=== PATIENT | male | born 1980 | race Caucasian/White ===

== ENCOUNTER 2020-11-21 17:43 | Inpatient (IN) | payer OTHER, MEDICAID, SELFPAY ==
[2020-11-21 17:44] VITALS: BP 106/76; PULSE 105; RESP 14; TEMP 36.2; O2SAT 98; BMI 20.2
[2020-11-21 19:08] VITALS: BMI 20.3
--- NOTE | 2020-11-21 19:13 | ED.DCSUM_ITS ---
History of Present Illness Chief Complaint: Substance Abuse Detail of Chief Complaint: Substance abuse Informant: Patient Onset: Month(s) - Years. Patient states he has been drinking since he was a teenager. Context: Gradual Onset Timing: Continuous Quality: Consumes 30 beers a day also uses heroin and crack cocaine Location: Not applicable Current Severity: Mild Maximum Severity: Moderate Worsened by: Abstinence Relieved by: Use Associated Symptoms: Jitteriness, anxiety, palpitations Narrative: Patient is a 39-year-old male who presents to the emergency department because of dependency on alcohol, opiates and crack cocaine. He consumes 30 beers a day. He has been snorting what he believes to be heroin and crack cocaine together. He denies IV drug use presently. He denies history of hepatitis or HIV. He denies abdominal pain. Does complain of nausea. Denies diarrhea. He denies paresthesia, anesthesia or motor weakness. He denies history of liver disease. Prior similar symptoms: No Recent Illness/Hospitalization: No - Past Medical History (1) Substance abuse Status: Acute Past Medical History - Allergies and Home Meds Allergies/Adverse Reactions: Allergies shellfish derived Allergy (Verified 11/21/20 17:48) Anaphylaxis Primary Care Physician: Care Physician,No Primary [Primary Care Provider] - Prior records reviewed: No Surgical History: no surgical history Lives: Spouse/ Significant Other Smoking Status: Current every day smoker Alcohol: Heavy Drugs: Cocaine, Heroin Review of Systems General: Reports: Malaise. Denies: Chills, Fever, Sweats Eyes: Denies: Visual changes - bilaterally, Blurred Vision - bilaterally Cardiovascular: Reports: Palpitations. Denies: Chest pain Respiratory: Denies: Dyspnea, Cough, Dyspnea on exertion Gastrointestinal: Reports: Nausea. Denies: Abdominal pain, Vomiting, Diarrhea, Constipation, Melena, Hematochezia, -, - Genitourinary: Denies: Dysuria, Hematuria, Frequency Musculoskeletal: Denies: Myalgias, Arthralgias, Neck pain, Back pain, Swelling, Extremity Pain, -, - Skin: Denies: Rash, Wounds Neurological: Denies: Headache, Weakness, Parasthesia, Numbness, -, - Psych: Reports: Anxiety. Denies: Depression Endocrine: Denies: Polyuria, Polydipsia Hematologic: Denies: Easy bruising, Easy bleeding Physical Exam Vital Signs/Narrative: Vital Signs Temp Pulse Resp BP Pulse Ox 11/21/20 17:44 97.1 F L 105 H 14 106/76 98 Inital Vital Signs reviewed: Yes General: Well nourished, Well developed, No Acute Distress Head: Normocephalic, Atraumatic Eyes: Perrl, EOMI. Negative for: Pale conjunctiva, Scleral icterus ENT: Moist mucous membranes, No rhinorrhea Neck: Supple, Nontender, No lymphadenopathy, No JVD Cardiovascular: Regular rate, Regular rhythm, No murmurs Respiratory: No distress, CTA bilaterally, Chest nontender Abdomen: Soft, Nontender, Nondistended, Normal bowel sounds Rectal: Deferred Back: Nontender, Normal Inspection Extremities: Nontender, No edema Skin: Normal color, No rash, No Trauma. Negative for: Cyanosis, Diaphoresis, Jaundice Neurological: Alert, Oriented x3, Cranial nerves II-XII grossly intact, Normal Strength, Normal Sensation, Normal DTR - Reflexes are brisk. He has no clonus or Babinski sign. Psychological: Normal Mood Diagnostic/Tx/Re-eval Chest X-Ray - ED: 2 View, Read by ED Physician, Normal, - - Operative by me at 2024. Documented under diagnostic testing. 11/21/20 20:05 Tibia & Fibula 2 Views [RAD] Stat Laboratory Results 11/21/20 11/21/20 11/21/20 19:00 19:00 19:00 WBC 11.5 H RBC 4.92 Hgb 14.4 Hct 44.0 MCV 89.4 MCH 29.3 MCHC 32.7 RDW Std Deviation 43.2 RDW Coeff of Thalia 13.2 Plt Count 203 MPV 12.5 H Immature Gran % (Auto) 0.300 Neut % (Auto) 73.6 H Lymph % (Auto) 15.2 L [place] % (Auto) 9.3 Eos % (Auto) 1.3 Baso % (Auto) 0.3 Absolute Neuts (auto) 8.4 H Absolute Lymphs (auto) 1.75 Nucleated RBC % 0 Differential Comment SCANNED Sodium 139 Potassium 3.7 Chloride 102 Carbon Dioxide 33.0 H Anion Gap 4 L BUN 21 H Creatinine 0.86 Estim Creat Clear Calc 109.79 Est GFR (MDRD) Af Amer 128 Est GFR (MDRD) Non-Af 106 BUN/Creatinine Ratio 24.5 H Glucose 62 L Calcium 8.5 Total Bilirubin 0.20 AST 16 ALT 33 Alkaline Phosphatase 118 H Total Protein 6.7 Albumin 3.2 Globulin 3.5 Albumin/Globulin Ratio 0.9 Urine Opiates Screen Urine Methadone Screen Ur Barbiturates Screen Ur Phencyclidine Scrn Ur Amphetamines Screen U Methamphetamin-MDMA U Benzodiazepines Scrn Urine Cocaine Screen U Cannabinoids Screen Ur Drug Screen Comment Ethyl Alcohol < 3.0 11/21/20 19:00 WBC RBC Hgb Hct MCV MCH MCHC RDW Std Deviation RDW Coeff of Thalia Plt Count MPV Immature Gran % (Auto) Neut % (Auto) Lymph % (Auto) [place] % (Auto) Eos % (Auto) Baso % (Auto) Absolute Neuts (auto) Absolute Lymphs (auto) Nucleated RBC % Differential Comment Sodium Potassium Chloride Carbon Dioxide Anion Gap BUN Creatinine Estim Creat Clear Calc Est GFR (MDRD) Af Amer Est GFR (MDRD) Non-Af BUN/Creatinine Ratio Glucose Calcium Total Bilirubin AST ALT Alkaline Phosphatase Total Protein Albumin Globulin Albumin/Globulin Ratio Urine Opiates Screen NEGATIVE Urine Methadone Screen NEGATIVE Ur Barbiturates Screen NEGATIVE Ur Phencyclidine Scrn NEGATIVE Ur Amphetamines Screen NEGATIVE U Methamphetamin-MDMA NEGATIVE U Benzodiazepines Scrn NEGATIVE Urine Cocaine Screen POSITIVE H U Cannabinoids Screen NEGATIVE Ur Drug Screen Comment Ethyl Alcohol Count is slightly elevated. Lactate is pending. Liver enzymes are normal. Tox is positive for cocaine. Suspect negative opiate would indicate patient is snorting fentanyl. 2 view x-ray of the left tib-fib reveals no foreign body or subcutaneous air. There is no abnormality of the osseous structures. Lactate is normal. - Medical Decision Making She presents for detox to alcohol, opiates and crack cocaine. Screening labs were obtained. Since he tachycardic and has mild symptoms withdrawal he was treated with Ativan, phenobarbital, Zofran and Bentyl. ED Disposition - Plan for ED Patient: Disposition: Acute Care Hospital [facility] Diagnosis: Alcohol withdrawal, Cellulitis of left leg without foot, Opiate dependence, Crack cocaine use Referrals: Care Physician,No Primary [Primary Care Provider] -
[2020-11-21 19:15] VITALS: BP 116/83; PULSE 95; RESP 16; TEMP 36.7; O2SAT 99
[2020-11-21 19:15] LABS: Absolute Lymphocyte Count 1.75 X10^3/uL (0.83-4.51); Absolute Neutrophil Count 8.4 X10^3/uL (2.0-7.7); Basophil# 0.04 X10^3/uL; Basophil% 0.3 % (0-1); Eosinophil# 0.15 X10^3/uL; Eosinophils% 1.3 % (0-5); Hemoglobin 14.4 g/dL (13.0-16.5); Lymphocyte # 1.75 X10^3/ul (4.0); Lymphocyte % 15.2 % (19-41); Mean Corp Hgb Conc 32.7 g/dL (32-36); Mean Corpuscular Hgb 29.3 pg (27.0-32.0); Mean Corpuscular Volume 89.4 fL (80-94); Mean Platelet Vol. 12.5 fl (6.2-12.0); Monocyte# 1.07 X10^3/uL; Monocyte% 9.3 % (0-10); NRBC Flagged by Analyzer 0 % (0-5); Neutrophil # 8.44 X10^3/uL (2.7-7.7); Neutrophil % 73.6 % (47-70); POSITIVE MORPHOLOGY YES; Platelet Count 203 K/mm3 (150-450); RBC Distribution Width CV 13.2 % (11.6-14.6); RBC Distribution Width SD 43.2 fl (35.1-43.9); Red Blood Count 4.92 M/mm3 (4.6-6.2); White Blood Count 11.5 K/mm3 (4.4-11.0)
[2020-11-21] MEDS: Phenobarbital 32.4 MG Tablet 97.2 MG PO (19:20)
[2020-11-21] MEDS: Dicyclomine 10 MG Capsule 20 MG PO (19:21)
[2020-11-21] MEDS: LORazepam 2 MG/ML Syringe 1 MG IV (19:21)
[2020-11-21] MEDS: Ondansetron 4 MG/2 ML Vial IV (19:22)
[2020-11-21 19:26] VITALS: BP 119/83; PULSE 93; RESP 17; O2SAT 99
[2020-11-21 19:34] LABS: ALB/GLOB Ratio 0.9 RATIO (0.9-2.4); AST(SGOT) 16 U/L (15-37); Alanine Aminotransfer ALT/SGPT 33 U/L (16-61); Albumin, Serum 3.2 g/dL (3.2-5.0); Alkaline Phosphatase 118 U/L (45-117); Anion Gap 4 (5-15); BUN 21 mg/dL (7-18); BUN/Creat Ratio 24.5 RATIO (10-20); Calcium,Total 8.5 mg/dL (8.5-10.1); Chloride 102 mmol/L (98-107); Creatinine, Serum 0.86 mg/dL (0.70-1.30); EST Glomerular Filtration Rate 106 mL/min (>60); Est Glom Filt Rate - Afr Amer 128 mL/min (>60); Estimated Creatinine Clearance 109.79 ml/min; Globulin 3.5 g/dL (2.2-4.2); Glucose 62 mg/dL (74-106); Potassium 3.7 mmol/L (3.5-5.1); Protein, Total 6.7 g/dL (6.4-8.2); Sodium Level 139 mmol/L (136-145)
[2020-11-21 19:37] LABS: Alcohol, Blood (Medical)-Serum < 3.0 mg/dL
[2020-11-21 19:40] LABS: Amphetamine Urine VISTA NEGATIVE (<1000 ng/mL); Barbiturate Urine VISTA NEGATIVE (< 200 ng/mL); Benzodiazepine Urine VISTA NEGATIVE (< 200 ng/mL); Cocaine Urine VISTA POSITIVE (< 300 ng/mL); Ecstacy Urine VISTA NEGATIVE (< 500 ng/mL); Methadone Urine VISTA NEGATIVE (< 300 ng/mL); PCP Urine VISTA NEGATIVE (< 25 ng/mL); THC Urine VISTA NEGATIVE (< 50 ng/mL); Vista UDS pH Range 6
[2020-11-21 19:46] LABS: Differential Comment SCANNED; Differential Indicated SCAN CRITERIA MET
--- NOTE | 2020-11-21 20:05 | RAD_ITS ---
INDICATION: Swelling, pain evaluate subcu air EXAMINATION/TECHNIQUE: X-RAY - LEFT XR Tibia/Fibula 2 Views COMPARISON: None. FINDINGS: No acute fracture or malalignment. Sclerotic expansile lesion in the distal fibular shaft measuring approximately 5.3 x 1.7 cm. No degenerative changes are seen. The soft tissues are unremarkable. RAD/Tibia & Fibula 2 Views IMPRESSION: Sclerotic expansile lesion in the mid to distal fibula is indeterminate. Recommend MRI tib-fib with and without contrast for further evaluation. Electronically Signed: Sammy Danielle MD at 20:54 EDT Tel , Service support ,
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
[2020-11-21 20:28] LABS: Lactic Acid 1.2 mmol/L (0.4-1.9)
--- NOTE | 2020-11-21 20:59 | CM.ED ---
SOCIAL WORK Reason for Consult: Substance Abuse- requesting detox Patient presents to ER for detox from alcohol and heroin. Patient reports last use was last night. Informed by Dr. Nath patient with 5 children at home. This worker followed up with patient's [id number], Mayda Moe. Per Mayda, children are being cared for by family. Mayda valadez patient and do not have custody of older children. does have custody of 1 year-old and [facility] are aware of patient and 's substance use. Mayda valadez has been in contact with sample case porter. Call to [facility] Treatment Navigator, Kyle. Updated on patient's admission to [facility]. Per Shannon Wright will be in tomorrow to complete assessment. Plan: Admit to [facility] Dg Kim, MANAGER OF PROCUREMENT, MILLINERY DEPARTMENT MANAGER
[2020-11-21 21:11] VITALS: BP 114/72; PULSE 81; PULSE 83; RESP 12; TEMP 36.8; O2SAT 100; O2SAT 99
[2020-11-21 21:39] VITALS: BP 114/80; PULSE 75; RESP 16; TEMP 36.9; O2SAT 100; BMI 20.3
[2020-11-21 22:14] VITALS: BMI 19.3
[2020-11-21 22:23] LABS: Phosphorus 3.1 mg/dL (2.5-4.9)
[2020-11-21 22:54] LABS: HIV - WCH Non-Reactive (Nonreactive)
[2020-11-21 23:06] LABS: M R Staph aureus DNA By PCR POSITIVE (Negative); Probe Check PASS; Staph aureus DNA By PCR POSITIVE (Negative)
[2020-11-21] MEDS: Phenobarbital 32.4 MG Tablet 64.8 MG PO (23:40)
--- NOTE | 2020-11-22 00:03 | PCM.RX.CS ---
Consult Pharmacy has been consulted to manage selected antiobiotic: Vancomycin Type of Consult: New start Suspected Infection: Skin/Soft tissue Labs: Sodium 139 mmol/L (136-145) 11/21/20 19:00 Potassium 3.7 mmol/L (3.5-5.1) 11/21/20 19:00 Chloride 102 mmol/L (98-107) 11/21/20 19:00 Carbon Dioxide 33.0 mmol/L (21.0-32.0) H 11/21/20 19:00 Anion Gap 4 (5-15) L 11/21/20 19:00 BUN 21 mg/dL (7-18) H 11/21/20 19:00 Creatinine 0.86 mg/dL (0.70-1.30) 11/21/20 19:00 Est GFR (MDRD) Af Amer 128 mL/min (>60) 11/21/20 19:00 Est GFR (MDRD) Non-Af 106 mL/min (>60) 11/21/20 19:00 BUN/Creatinine Ratio 24.5 RATIO (10-20) H 11/21/20 19:00 Glucose 62 mg/dL (74-106) L 11/21/20 19:00 Weight used for dosin.1 kg Estimated Creatinine Clearance: 109 Goal Trough: 10-15 mcg/mL Pharmacy Plan for Drug Dosing: Pharmacy Service will continue to monitor and adjust dosing as required. Medications Vancomycin HCl (Vancomycin) 1,000 mg in 200 mls @ 200 mls/hr IV Q12H MADI Discontinued Medications Vancomycin HCl 1,750 mg/ (Sodium Chloride) 535 mls @ 250 mls/hr IV X1 ONE Stop: 11/21/20 22:08 Last Admin: 11/22/20 00:00 Dose: Infused Documented by: Follow-Up Labs: Trough Vancomycin Labs to be done on [date and time ordered]: 11/23 @ 0900
[2020-11-22] MEDS: Lactated Ringers 1,000 ML 125 ML IV (01:11)
[2020-11-22] MEDS: Buprenorphine HCl 2 MG TAB.SUBL SL ×3 (01:45→18:18)
[2020-11-22 03:40] VITALS: BP 110/62; PULSE 84; RESP 16; TEMP 36.8; O2SAT 98
[2020-11-22] MEDS: Phenobarbital 32.4 MG Tablet 64.8 MG PO ×6 (03:40→22:22)
[2020-11-22 05:29] LABS: AST(SGOT) 13 U/L (15-37); Alanine Aminotransfer ALT/SGPT 28 U/L (16-61); Albumin, Serum 2.7 g/dL (3.2-5.0); Alkaline Phosphatase 87 U/L (45-117); Anion Gap 5 (5-15); BUN 11 mg/dL (7-18); BUN/Creat Ratio 18.3 RATIO (10-20); Calcium,Total 7.9 mg/dL (8.5-10.1); Chloride 106 mmol/L (98-107); EST Glomerular Filtration Rate 160 mL/min (>60); Est Glom Filt Rate - Afr Amer 194 mL/min (>60); Estimated Creatinine Clearance 150.45 ml/min; Globulin 2.6 g/dL (2.2-4.2); Glucose 99 mg/dL (74-106); Potassium 3.7 mmol/L (3.5-5.1); Protein, Total 5.3 g/dL (6.4-8.2); Sodium Level 140 mmol/L (136-145)
[2020-11-22 06:58] VITALS: BP 103/66; PULSE 73; RESP 16; TEMP 36.7; O2SAT 99
[2020-11-22 07:04] VITALS: O2SAT 99
[2020-11-22 08:14] LABS: Absolute Lymphocyte Count 1.59 X10^3/uL (0.83-4.51); Basophil# 0.05 X10^3/uL; Basophil% 0.7 % (0-1); Eosinophil# 0.19 X10^3/uL; Eosinophils% 2.5 % (0-5); Hematocrit 39.7 % (40-54); Lymphocyte # 1.59 X10^3/ul (4.0); Lymphocyte % 20.9 % (19-41); Mean Corp Hgb Conc 32.7 g/dL (32-36); Mean Corpuscular Hgb 29.5 pg (27.0-32.0); Mean Corpuscular Volume 90.2 fL (80-94); Mean Platelet Vol. 12.8 fl (6.2-12.0); Monocyte# 0.72 X10^3/uL; Monocyte% 9.5 % (0-10); NRBC Flagged by Analyzer 0 % (0-5); Neutrophil # 5.03 X10^3/uL (2.7-7.7); Platelet Count 175 K/mm3 (150-450); RBC Distribution Width CV 13.2 % (11.6-14.6); RBC Distribution Width SD 43.4 fl (35.1-43.9); White Blood Count 7.6 K/mm3 (4.4-11.0)
[2020-11-22] MEDS: Thiamine Hydrochloride 100 MG Tablet PO (08:18)
[2020-11-22] MEDS: Folic Acid 1 MG Tablet PO (08:18)
[2020-11-22] MEDS: Vancomycin IV 1,000 MG/200 ML BAG 200 MG IV (09:15)
[2020-11-22 10:50] VITALS: BP 102/65; PULSE 84; RESP 16; TEMP 36.9; O2SAT 99
[2020-11-22] MEDS: Ibuprofen 600 MG Tablet PO ×2 (10:53→22:22)
--- NOTE | 2020-11-22 11:41 | CASEMGMT ---
MS 3 CESAR Juradoah Braden was working on contacting [facility] regarding patient and his 's child. Monica Mcdaniel DIRECTOR OF STRATEGIC MARKETING EDITH
--- NOTE | 2020-11-22 12:35 | PCM.HP.ID ---
Problem List (1) Left leg cellulitis Status: Acute Reason for Consult: skin abscess Consulted by: Dr. Foss History of Present Illness: The patient is a 39 year old M with etoh abuse, cocaine and opiate abuse. Denies ivdu, denies h/o hep C. Drinks 30 beers and half a bottle of liquor daily. Smokes crack and opiates. Came to ED for detox. Does not feel well. Reports 1-2 days of painful, red, lump inferior to L knee. No inciting event, no prior h/o MRSA or skin abscess. Some pain with knee movement. I&D done, cx sent, started on vanc/unasyn, feeling much better today. Full ROS performed and neg except as noted above. - Medical History Past Medical History (Chronic Problems): Chronic Problems Tobacco use (Chronic) Allergies/Adverse Reactions: Allergies shellfish derived Allergy (Verified 11/21/20 17:48) Anaphylaxis Home Medications: Ambulatory Orders Medication Instructions Recorded NK 11/21/20 - Social History Tobacco Use: cigarettes SMOKING STATUS:: Current every day smoker Drug Use: cocaine Vital Signs Temp Pulse Resp BP Pulse Ox 98.4 F 84 16 102/65 99 11/22/20 10:50 11/22/20 10:50 11/22/20 10:50 11/22/20 10:50 11/22/20 10:50 Oxygen Delivery Method Room Air Weight: 63.1 kg Body Mass Index (BMI) 19.3 Microbiology Past 72 Hours 11/21/20 21:10 Gram Stain - Final Fluid - Synovial (joint) Body Fluid Culture - Preliminary Staphylococcus aureus Laboratory Tests Past 24 Hrs 11/21/20 11/21/20 11/21/20 19:00 19:00 19:00 WBC 11.5 H RBC 4.92 Hgb 14.4 Hct 44.0 MCV 89.4 MCH 29.3 MCHC 32.7 RDW Std Deviation 43.2 RDW Coeff of Thalia 13.2 Plt Count 203 MPV 12.5 H Immature Gran % (Auto) 0.300 Neut % (Auto) 73.6 H Lymph % (Auto) 15.2 L [place] % (Auto) 9.3 Eos % (Auto) 1.3 Baso % (Auto) 0.3 Absolute Neuts (auto) 8.4 H Absolute Lymphs (auto) 1.75 Nucleated RBC % 0 Differential Comment SCANNED Sodium 139 Potassium 3.7 Chloride 102 Carbon Dioxide 33.0 H Anion Gap 4 L BUN 21 H Creatinine 0.86 Estim Creat Clear Calc 109.79 Est GFR (MDRD) Af Amer 128 Est GFR (MDRD) Non-Af 106 BUN/Creatinine Ratio 24.5 H Glucose 62 L Lactic Acid Calcium 8.5 Phosphorus Magnesium Total Bilirubin 0.20 AST 16 ALT 33 Alkaline Phosphatase 118 H Total Protein 6.7 Albumin 3.2 Globulin 3.5 Albumin/Globulin Ratio 0.9 Fluid Source Fluid Color Fluid Appearance Fluid WBC Fluid RBC Fluid Tot Cell Count Fld Polynuclear WBCs # Fld Polynuclear WBCs % Fluid Mononuclear WBCs Fld Mononuclear WBCs % Fluid Neutrophils Fluid Lymphocytes Fluid Monocytes Fluid Plasma Cells Fluid Macrophages Fld Mesothelial Cells Fluid Other Cells Fl Pathologist Comment Fluid Comment 2 Urine Opiates Screen Urine Methadone Screen Ur Barbiturates Screen Ur Phencyclidine Scrn Ur Amphetamines Screen U Methamphetamin-MDMA U Benzodiazepines Scrn Urine Cocaine Screen U Cannabinoids Screen Ur Drug Screen Comment Ethyl Alcohol < 3.0 Hepatitis A IgM Ab Hepatitis A Ab Total Hep Bs Antigen Hep B Core Total Ab Hep B Core IgM Ab HIV 1&2 Antibody S.aureus Protein A PCR MRSA (PCR) 11/21/20 11/21/20 11/21/20 19:00 19:00 19:00 WBC RBC Hgb Hct MCV MCH MCHC RDW Std Deviation RDW Coeff of Thalia Plt Count MPV Immature Gran % (Auto) Neut % (Auto) Lymph % (Auto) [place] % (Auto) Eos % (Auto) Baso % (Auto) Absolute Neuts (auto) Absolute Lymphs (auto) Nucleated RBC % Differential Comment Sodium Potassium Chloride Carbon Dioxide Anion Gap BUN Creatinine Estim Creat Clear Calc Est GFR (MDRD) Af Amer Est GFR (MDRD) Non-Af BUN/Creatinine Ratio Glucose Lactic Acid Calcium Phosphorus 3.1 Magnesium 2.0 Total Bilirubin AST ALT Alkaline Phosphatase Total Protein Albumin Globulin Albumin/Globulin Ratio Fluid Source Fluid Color Fluid Appearance Fluid WBC Fluid RBC Fluid Tot Cell Count Fld Polynuclear WBCs # Fld Polynuclear WBCs % Fluid Mononuclear WBCs Fld Mononuclear WBCs % Fluid Neutrophils Fluid Lymphocytes Fluid Monocytes Fluid Plasma Cells Fluid Macrophages Fld Mesothelial Cells Fluid Other Cells Fl Pathologist Comment Fluid Comment 2 Urine Opiates Screen NEGATIVE Urine Methadone Screen NEGATIVE Ur Barbiturates Screen NEGATIVE Ur Phencyclidine Scrn NEGATIVE Ur Amphetamines Screen NEGATIVE U Methamphetamin-MDMA NEGATIVE U Benzodiazepines Scrn NEGATIVE Urine Cocaine Screen POSITIVE H U Cannabinoids Screen NEGATIVE Ur Drug Screen Comment Ethyl Alcohol Hepatitis A IgM Ab Pending Hepatitis A Ab Total Pending Hep Bs Antigen Pending Hep B Core Total Ab Pending Hep B Core IgM Ab Pending HIV 1&2 Antibody S.aureus Protein A PCR MRSA (PCR) 11/21/20 11/21/20 11/21/20 19:00 19:52 21:10 WBC RBC Hgb Hct MCV MCH MCHC RDW Std Deviation RDW Coeff of Thalia Plt Count MPV Immature Gran % (Auto) Neut % (Auto) Lymph % (Auto) [place] % (Auto) Eos % (Auto) Baso % (Auto) Absolute Neuts (auto) Absolute Lymphs (auto) Nucleated RBC % Differential Comment Sodium Potassium Chloride Carbon Dioxide Anion Gap BUN Creatinine Estim Creat Clear Calc Est GFR (MDRD) Af Amer Est GFR (MDRD) Non-Af BUN/Creatinine Ratio Glucose Lactic Acid 1.2 Calcium Phosphorus Magnesium Total Bilirubin AST ALT Alkaline Phosphatase Total Protein Albumin Globulin Albumin/Globulin Ratio Fluid Source Cancelled Fluid Color Cancelled Fluid Appearance Cancelled Fluid WBC Cancelled Fluid RBC Cancelled Fluid Tot Cell Count Cancelled Fld Polynuclear WBCs # Cancelled Fld Polynuclear WBCs % Cancelled Fluid Mononuclear WBCs Cancelled Fld Mononuclear WBCs % Cancelled Fluid Neutrophils Cancelled Fluid Lymphocytes Cancelled Fluid Monocytes Cancelled Fluid Plasma Cells Cancelled Fluid Macrophages Cancelled Fld Mesothelial Cells Cancelled Fluid Other Cells Cancelled Fl Pathologist Comment Cancelled Fluid Comment 2 Cancelled Urine Opiates Screen Urine Methadone Screen Ur Barbiturates Screen Ur Phencyclidine Scrn Ur Amphetamines Screen U Methamphetamin-MDMA U Benzodiazepines Scrn Urine Cocaine Screen U Cannabinoids Screen Ur Drug Screen Comment Ethyl Alcohol Hepatitis A IgM Ab Hepatitis A Ab Total Hep Bs Antigen Hep B Core Total Ab Hep B Core IgM Ab HIV 1&2 Antibody Non-Reactive S.aureus Protein A PCR MRSA (PCR) 11/21/20 11/22/20 11/22/20 21:10 04:54 05:10 WBC 7.6 RBC 4.40 L Hgb 13.0 Hct 39.7 L MCV 90.2 MCH 29.5 MCHC 32.7 RDW Std Deviation 43.4 RDW Coeff of Tahlia 13.2 Plt Count 175 MPV 12.8 H Immature Gran % (Auto) 0.400 Neut % (Auto) 66.0 Lymph % (Auto) 20.9 [place] % (Auto) 9.5 Eos % (Auto) 2.5 Baso % (Auto) 0.7 Absolute Neuts (auto) 5.0 Absolute Lymphs (auto) 1.59 Nucleated RBC % 0 Differential Comment Sodium 140 Potassium 3.7 Chloride 106 Carbon Dioxide 29.0 Anion Gap 5 BUN 11 Creatinine 0.60 L Estim Creat Clear Calc 150.45 Est GFR (MDRD) Af Amer 194 Est GFR (MDRD) Non-Af 160 BUN/Creatinine Ratio 18.3 Glucose 99 Lactic Acid Calcium 7.9 L Phosphorus Magnesium Total Bilirubin 0.30 AST 13 L ALT 28 Alkaline Phosphatase 87 Total Protein 5.3 L Albumin 2.7 L Globulin 2.6 Albumin/Globulin Ratio 1.0 Fluid Source Fluid Color Fluid Appearance Fluid WBC Fluid RBC Fluid Tot Cell Count Fld Polynuclear WBCs # Fld Polynuclear WBCs % Fluid Mononuclear WBCs Fld Mononuclear WBCs % Fluid Neutrophils Fluid Lymphocytes Fluid Monocytes Fluid Plasma Cells Fluid Macrophages Fld Mesothelial Cells Fluid Other Cells Fl Pathologist Comment Fluid Comment 2 Urine Opiates Screen Urine Methadone Screen Ur Barbiturates Screen Ur Phencyclidine Scrn Ur Amphetamines Screen U Methamphetamin-MDMA U Benzodiazepines Scrn Urine Cocaine Screen U Cannabinoids Screen Ur Drug Screen Comment Ethyl Alcohol Hepatitis A IgM Ab Hepatitis A Ab Total Hep Bs Antigen Hep B Core Total Ab Hep B Core IgM Ab HIV 1&2 Antibody S.aureus Protein A PCR POSITIVE H MRSA (PCR) POSITIVE H - Other Studies Radiology: [] reviewed Other Studies: [] Route of nutrition/ use of supplements: [] Nutritional Intake: [] IV Site: [] Nix Catheter: [] - Physical Exam General: Alert, Oriented x3, Cooperative, No apparent distress HEENT: Atraumatic, PERRLA, EOMI Neck: Supple, No Nodes Lungs: Clear to auscultation, Normal air movement Cardiovascular: Regular rate, Regular Rhythm Abdomen: Soft, Non Tender, Non-Distended Extremities: No edema Skin: No rashes, - - Good knee movement, minimal swelling and redness L infrapatellar area IV Site: Peripheral, without redness Musculoskeletal: No Tenderness to Palpation of Joints or Extremities Neurological: Cranial nerves II-XII grossly intact - Assessment/Plan Antibiotics: [] Assessment/Plan: [] Active and Suspected Problems Substance abuse (Acute) Alcohol withdrawal (Acute) Cellulitis of left leg without foot (Acute) Opiate dependence (Acute) Crack cocaine use (Acute) Opiate withdrawal (Acute) Left leg cellulitis (Acute) staph aureus skin abscess below L knee - aspiration done in ED, cx with staph aureus. Low suspicion for septic arthritis based on exam and rapid improvement. Will narrow abx to po bactrim, plan on 5-7 day course. drug abuse - hiv neg, hep panel pending. Will follow, thank you, d/w Dr. Foss
--- NOTE | 2020-11-22 12:41 | PCM.PROGNOTE ---
Patient Problems: Active and Suspected Problems Substance abuse (Acute) Alcohol withdrawal (Acute) Cellulitis of left leg without foot (Acute) Opiate dependence (Acute) Crack cocaine use (Acute) Opiate withdrawal (Acute) Left leg cellulitis (Acute) Subjective: Patient was seen and examined today, he does not complain of any nervousness or tremor at this time, he is slightly diaphoretic. The area distal to the left knee is appears to be reddened and tender on palpation, I could see no evidence of discharge from the area. I had infectious diseases see the patient today and may narrowed his antibiotic coverage to Bactrim, they felt that he had a small staph abscess. - Physical Exam Vitals/I&O's: Vital Signs Temp Pulse Resp BP Pulse Ox 98.4 F 84 16 102/65 99 11/22/20 10:50 11/22/20 10:50 11/22/20 10:50 11/22/20 10:50 11/22/20 10:50 Oxygen Delivery Method Room Air Weight: 63.1 kg Body Mass Index (BMI) 19.3 Intake and Output for Last 24 Hours 11/20/20 11/21/20 11/22/20 23:59 23:59 23:59 Intake Total 112 / 887 3311.00 / 3311.00 Balance 112 / 887 3311.00 / 3311.00 General: Alert, Oriented x3, Cooperative, No apparent distress, Well developed HEENT: Atraumatic, PERRLA, EOMI, Normocephalic Oral: Moist Mucosa Neck: Supple, No JVD, No Nuchal Rigidity, Trachea Midline, Thyroid Normal Size and Texture Lungs: Clear to auscultation, Normal air movement, No rhonchi, No wheeze, No rales Cardiovascular: Regular rate, Regular Rhythm, Normal S1, Normal S2, No murmurs, PMI Normal, No rub noted Abdomen: Bowel Sounds Present, Soft, Non Tender, Non-Distended Extremities: No clubbing, No cyanosis, Capillary Refill Less than 3 Seconds, Edema - There is some mild edema and redness distal to the left knee, this area is tender to palpation Skin: - - There is some redness distal to the left knee, this area is also tender to palpation. Some edema is noted to be present Musculoskeletal: No Tenderness to Palpation of Joints or Extremities Neurological: Cranial nerves II-XII grossly intact, Neuro grossly intact, Muscle tone normal, Sensory exam intact to light touch and pain Psych/Mental Status: Normal Affect, Appropriate, Alert and oriented to time, place, person, mood and affect Microbiology Past 72 Hours 11/21/20 21:10 Fluid - Synovial (joint) Gram Stain - Final 11/21/20 21:10 Fluid - Synovial (joint) Body Fluid Culture - Preliminary Staphylococcus aureus Laboratory Results 11/21/20 19:00: WBC 11.5 H, RBC 4.92, Hgb 14.4, Hct 44.0, MCV 89.4, MCH 29.3, MCHC 32.7, RDW Std Deviation 43.2, RDW Coeff of Thalia 13.2, Plt Count 203, MPV 12.5 H, Immature Gran % (Auto) 0.300, Neut % (Auto) 73.6 H, Lymph % (Auto) 15.2 L, [place] % (Auto) 9.3, Eos % (Auto) 1.3, Baso % (Auto) 0.3, Absolute Neuts (auto) 8.4 H, Absolute Lymphs (auto) 1.75, Nucleated RBC % 0, Differential Comment SCANNED 11/21/20 19:00: Sodium 139, Potassium 3.7, Chloride 102, Carbon Dioxide 33.0 H, Anion Gap 4 L, BUN 21 H, Creatinine 0.86, Estim Creat Clear Calc 109.79, Est GFR (MDRD) Af Amer 128, Est GFR (MDRD) Non-Af 106, BUN/Creatinine Ratio 24.5 H, Glucose 62 L, Calcium 8.5, Total Bilirubin 0.20, AST 16, ALT 33, Alkaline Phosphatase 118 H, Total Protein 6.7, Albumin 3.2, Globulin 3.5, Albumin/Globulin Ratio 0.9 11/21/20 19:00: Ethyl Alcohol < 3.0 11/21/20 19:00: Urine Opiates Screen NEGATIVE, Urine Methadone Screen NEGATIVE, Ur Barbiturates Screen NEGATIVE, Ur Phencyclidine Scrn NEGATIVE, Ur Amphetamines Screen NEGATIVE, U Methamphetamin-MDMA NEGATIVE, U Benzodiazepines Scrn NEGATIVE, Urine Cocaine Screen POSITIVE H, U Cannabinoids Screen NEGATIVE, Ur Drug Screen Comment 11/21/20 19:00: Phosphorus 3.1, Magnesium 2.0 11/21/20 19:00: Hepatitis A IgM Ab Pending, Hepatitis A Ab Total Pending, Hep Bs Antigen Pending, Hep B Core Total Ab Pending, Hep B Core IgM Ab Pending 11/21/20 19:00: HIV 1&2 Antibody Non-Reactive 11/21/20 19:52: Lactic Acid 1.2 11/21/20 21:10: Fluid Source Cancelled, Fluid Color Cancelled, Fluid Appearance Cancelled, Fluid WBC Cancelled, Fluid RBC Cancelled, Fluid Tot Cell Count Cancelled, Fld Polynuclear WBCs # Cancelled, Fld Polynuclear WBCs % Cancelled, Fluid Mononuclear WBCs Cancelled, Fld Mononuclear WBCs % Cancelled, Fluid Neutrophils Cancelled, Fluid Lymphocytes Cancelled, Fluid Monocytes Cancelled, Fluid Plasma Cells Cancelled, Fluid Macrophages Cancelled, Fld Mesothelial Cells Cancelled, Fluid Other Cells Cancelled, Fl Pathologist Comment Cancelled, Fluid Comment 2 Cancelled 11/21/20 21:10: S.aureus Protein A PCR POSITIVE H, MRSA (PCR) POSITIVE H 11/22/20 04:54: Sodium 140, Potassium 3.7, Chloride 106, Carbon Dioxide 29.0, Anion Gap 5, BUN 11, Creatinine 0.60 L, Estim Creat Clear Calc 150.45, Est GFR (MDRD) Af Amer 194, Est GFR (MDRD) Non-Af 160, BUN/Creatinine Ratio 18.3, Glucose 99, Calcium 7.9 L, Total Bilirubin 0.30, AST 13 L, ALT 28, Alkaline Phosphatase 87, Total Protein 5.3 L, Albumin 2.7 L, Globulin 2.6, Albumin/Globulin Ratio 1.0 11/22/20 05:10: WBC 7.6, RBC 4.40 L, Hgb 13.0, Hct 39.7 L, MCV 90.2, MCH 29.5, MCHC 32.7, RDW Std Deviation 43.4, RDW Coeff of Thalia 13.2, Plt Count 175, MPV 12.8 H, Immature Gran % (Auto) 0.400, Neut % (Auto) 66.0, Lymph % (Auto) 20.9, [place] % (Auto) 9.5, Eos % (Auto) 2.5, Baso % (Auto) 0.7, Absolute Neuts (auto) 5.0, Absolute Lymphs (auto) 1.59, Nucleated RBC % 0 Current Medications Acetaminophen (Acetaminophen 500 Mg Tablet) 500 mg PO Q4H PRN PRN PRN Reason: Temp > 100.4 F, pain 1-1010 Buprenorphine HCl (Buprenorphine Hcl 2 Mg Tab.Subl) 4 mg SL Q8H [facility]; Taper Stop: 11/25/20 01:29 Last Admin: 11/22/20 09:14 Dose: 4 mg Documented by: Clonidine (Clonidine Hcl 0.1 Mg Tablet) 0.1 mg PO Q8H PRN PRN PRN Reason: RESTLESSNESS Folic Acid (Folic Acid 1 Mg Tablet) 1 mg PO DAILY@0800 [facility] Last Admin: 11/22/20 08:18 Dose: 1 mg Documented by: Sodium Chloride () 250 mls @ 15 mls/hr IV .[id number] PRN PRN Reason: Saline Flush Sodium Chloride () 250 mls @ 15 mls/hr IV .[id number] PRN PRN Reason: Additional IVPB Infusion Ibuprofen (Ibuprofen 600 Mg Tablet) 600 mg PO Q8H PRN PRN PRN Reason: PAIN Last Admin: 11/22/20 10:53 Dose: 600 mg Documented by: Methocarbamol (Methocarbamol 750 Mg Tablet) 1,500 mg PO Q6H PRN PRN PRN Reason: MUSCLE SPASM Nicotine (Nicotine 21 Mg Patch) 21 mg TD DAILY [facility] Last Admin: 11/22/20 09:14 Dose: 21 mg Documented by: Ondansetron HCl (Ondansetron 8 Mg Tablet) 8 mg PO Q8H PRN PRN PRN Reason: NAUSEA Phenobarbital (Phenobarbital 32.4 Mg Tablet) 97.2 mg PO Q4H [facility]; Taper Stop: 11/26/20 06:59 Last Admin: 11/22/20 10:51 Dose: 97.2 mg Documented by: Sodium Chloride (0.9% Saline Lock 10 Ml Syringe) 10 - 40 ml IV UD PRN PRN Reason: SALINE FLUSH Thiamine HCl (Thiamine Hydrochloride 100 Mg Tablet) [facility] Last Admin: 11/22/20 08:18 Dose: 100 mg Documented by: Trazodone HCl (Trazodone 100 Mg Tablet) 100 mg PO QHS PRN PRN PRN Reason: INSOMNIA Trimethoprim/Sulfamethoxazole (Smz/Tmp Ds Tablet) [facility] Medical Necessity - Tobacco Use Smoking Status: Current every day smoker Tobacco Use: Cigarettes, Cigars Assessment/Plan All Active Problems Substance abuse (Acute) Alcohol withdrawal (Acute) Cellulitis of left leg without foot (Acute) Opiate dependence (Acute) Crack cocaine use (Acute) Opiate withdrawal (Acute) Left leg cellulitis (Acute) #1 acute ethanol withdrawal-patient will remain on phenobarbital and Ativan as needed, he will be seen by the addiction social respiratory services manager today. #2 acute opiate withdrawal-patient will remain on Subutex #3 left lower leg cellulitis/skin abscess-secondary to staph-ID is seeing the patient today and the patient is on Bactrim #4 chronic alcoholism #5 polysubstance abuse-cocaine, opiates-patient denies injecting opiates-it is documented that he snorts it Inpatient E&M: 53753 Subs Hosp L2
[2020-11-22 14:47] VITALS: BP 112/64; PULSE 90; RESP 18; TEMP 36.8; O2SAT 99
--- NOTE | 2020-11-22 14:48 | ADDICTION ---
This creative services writer met with PT to complete ASAM,MSE,AUDIT,DUDIT assessments and to plan for d/c. PT A+Ox4 and participated appropriately. All documentation completed, faxed to [facility] and placed in PT's chart. PT plans to f/u with [facility] for IOP post d/c from [facility].
[2020-11-22] MEDS: Smz/Tmp Ds Tablet 1 TABLET PO ×2 (14:50→22:22)
[2020-11-22] MEDS: cloNIDine HCl 0.1 MG Tablet PO (15:05)
[2020-11-22] MEDS: Acetaminophen 500 MG Tablet PO (15:05)
[2020-11-22 22:17] VITALS: BP 101/55; PULSE 93; RESP 18; TEMP 36.6; O2SAT 99
[2020-11-22] MEDS: Methocarbamol 750 MG Tablet 1500 MG PO (22:22)
[2020-11-22] MEDS: traZODone 100 MG Tablet PO (23:04)
[2020-11-23] VITALS (7 sets, daily range): BP systolic 90–102; BP diastolic 58–65; PULSE 78–94; RESP 12–18; TEMP 36.2–36.9; O2SAT 98–100
[2020-11-23] MEDS: Docusate Sodium 100 MG Capsule PO ×3 (02:22→22:23)
[2020-11-23] MEDS: Buprenorphine HCl 2 MG TAB.SUBL SL ×3 (02:23→18:23)
[2020-11-23] MEDS: Phenobarbital 32.4 MG Tablet 64.8 MG PO ×3 (02:23→11:23)
[2020-11-23] MEDS: Ondansetron 8 MG Tablet PO ×2 (02:44→11:22)
--- NOTE | 2020-11-23 02:46 | NURSING ---
Pt eating lots of junk foor. pt c/o nausea. zofran given
[2020-11-23 07:07] LABS: HEPATITIS B SURFACE AG Negative (Negative); Hepatitis A AB, Total Negative (Negative); Hepatitis A IgM Antibody Negative (Negative); Hepatitis B Core AB IgM Negative (Negative); Hepatitis B Core Ab Total Negative (Negative); Hepatitis C Ab <0.1 s/co ratio (0.0-0.9)
[2020-11-23] MEDS: Thiamine Hydrochloride 100 MG Tablet PO ×2 (09:34→09:36)
[2020-11-23] MEDS: Acetaminophen 500 MG Tablet PO ×2 (09:34→22:23)
[2020-11-23] MEDS: Folic Acid 1 MG Tablet PO (09:35)
[2020-11-23] MEDS: Smz/Tmp Ds Tablet 1 TABLET PO ×2 (09:37→18:26)
[2020-11-23] MEDS: Methocarbamol 750 MG Tablet 1500 MG PO ×2 (09:39→18:38)
[2020-11-23] MEDS: Ibuprofen 600 MG Tablet PO ×2 (09:44→18:38)
[2020-11-23 12:10] LABS: Hep B Surface Antibodies Non Reactive (.)
--- NOTE | 2020-11-23 13:35 | PN_ITS ---
Patient Problems: Active and Suspected Problems Substance abuse (Acute) Alcohol withdrawal (Acute) Cellulitis of left leg without foot (Acute) Opiate dependence (Acute) Crack cocaine use (Acute) Opiate withdrawal (Acute) Left leg cellulitis (Acute) Subjective: Patient was seen and examined today, he complains of some tooth pain, I wrote for some lidocaine jelly for his tooth. Patient's culture from his synovial fluid came back positive for MRSA, it is sensitive to Bactrim however, I talked briefly with infectious diseases about this today and they thought it was appropriate that he remain on Bactrim. Patient does not complain of any tremor or nervousness, addiction social worker assistant saw the patient yesterday and the plans are for him to follow-up with [facility] for IOP post discharge from the hospital. Objective: General: Alert, Oriented x3, Cooperative, No apparent distress, Well developed HEENT: Atraumatic, PERRLA, EOMI, Normocephalic Oral: Moist Mucosa Neck: Supple, No JVD, No Nuchal Rigidity, Trachea Midline, Thyroid Normal Size and Texture Lungs: Clear to auscultation, Normal air movement, No rhonchi, No wheeze, No rales Cardiovascular: Regular rate, Regular Rhythm, Normal S1, Normal S2, No murmurs, PMI Normal, No rub noted Abdomen: Bowel Sounds Present, Soft, Non Tender, Non-Distended Extremities: No clubbing, No cyanosis, Capillary Refill Less than 3 Seconds, Edema - There is some mild edema and redness distal to the left knee, this area is slightly tender to palpation Skin: - - There is some redness distal to the left knee, this area is also slightly tender to palpation. Some edema is noted to be present. Overall this area appears to be improved as compared with yesterday Musculoskeletal: No Tenderness to Palpation of Joints or Extremities Neurological: Cranial nerves II-XII grossly intact, Neuro grossly intact, Muscle tone normal, Sensory exam intact to light touch and pain Psych/Mental Status: Normal Affect, Appropriate, Alert and oriented to time, place, person, mood and affect - Physical Exam Vitals/I&O's: Vital Signs Temp Pulse Resp BP Pulse Ox 98.5 F 86 14 96/65 99 11/23/20 09:31 11/23/20 09:31 11/23/20 09:31 11/23/20 09:31 11/23/20 09:31 Oxygen Delivery Method Room Air Weight: 63.1 kg Body Mass Index (BMI) 19.3 Intake and Output for Last 24 Hours 11/21/20 11/22/20 11/23/20 23:59 23:59 23:59 Intake Total 112 / 887 3851.00 / 3851.00 Balance 112 / 887 3851.00 / 3851.00 Microbiology Past 72 Hours 11/21/20 21:10 Fluid - Synovial (joint) Gram Stain - Final 11/21/20 21:10 Fluid - Synovial (joint) Body Fluid Culture - Final Meth. resistant Staph. aureus Laboratory Results 11/21/20 19:00: Hepatitis A IgM Ab Negative, Hepatitis A Ab Total Negative, Hep Bs Antigen Negative, Hep B Core Total Ab Negative, Hep B Core IgM Ab Negative, Hepatitis C Ab Confirm <0.1, Hep C Confirm Com 1 Comment Current Medications Acetaminophen (Acetaminophen 500 Mg Tablet) 500 mg PO Q4H PRN PRN PRN Reason: Temp > 100.4 F, pain 1-06/08 Last Admin: 11/23/20 09:34 Dose: 500 mg Documented by: Buprenorphine HCl (Buprenorphine Hcl 2 Mg Tab.Subl) 2 mg SL Q8H [facility]; Taper Stop: 11/25/20 01:29 Last Admin: 11/23/20 09:36 Dose: 2 mg Documented by: Clonidine (Clonidine Hcl 0.1 Mg Tablet) 0.1 mg PO Q8H PRN PRN PRN Reason: RESTLESSNESS Last Admin: 11/22/20 15:05 Dose: 0.1 mg Documented by: Docusate Sodium (Docusate Sodium 100 Mg Capsule) 100 mg PO BID [facility] Last Admin: 11/23/20 09:36 Dose: 100 mg Documented by: Folic Acid (Folic Acid 1 Mg Tablet) 1 mg PO DAILY@0800 [facility] Last Admin: 11/23/20 09:35 Dose: 1 mg Documented by: Sodium Chloride () 250 mls @ 15 mls/hr IV .[id number] PRN PRN Reason: Saline Flush Sodium Chloride () 250 mls @ 15 mls/hr IV .[id number] PRN PRN Reason: Additional IVPB Infusion Ibuprofen (Ibuprofen 600 Mg Tablet) 600 mg PO Q8H PRN PRN PRN Reason: PAIN Last Admin: 11/23/20 09:44 Dose: 600 mg Documented by: Methocarbamol (Methocarbamol 750 Mg Tablet) 1,500 mg PO Q6H PRN PRN PRN Reason: MUSCLE SPASM Last Admin: 11/23/20 09:39 Dose: 1,500 mg Documented by: Nicotine (Nicotine 21 Mg Patch) 21 mg TD DAILY [facility] Last Admin: 11/23/20 03:16 Dose: 21 mg Documented by: Ondansetron HCl (Ondansetron 8 Mg Tablet) 8 mg PO Q8H PRN PRN PRN Reason: NAUSEA Last Admin: 11/23/20 11:22 Dose: 8 mg Documented by: Phenobarbital (Phenobarbital 32.4 Mg Tablet) 64.8 mg PO Q4H [facility]; Taper Stop: 11/26/20 06:59 Last Admin: 11/23/20 11:23 Dose: 64.8 mg Documented by: Sodium Chloride (0.9% Saline Lock 10 Ml Syringe) 10 - 40 ml IV UD PRN PRN Reason: SALINE FLUSH Thiamine HCl (Thiamine Hydrochloride 100 Mg Tablet) [facility] Last Admin: 11/23/20 09:36 Dose: 100 mg Documented by: Trazodone HCl (Trazodone 100 Mg Tablet) 100 mg PO QHS PRN PRN PRN Reason: INSOMNIA Last Admin: 11/22/20 23:04 Dose: 100 mg Documented by: Trimethoprim/Sulfamethoxazole (Smz/Tmp Ds Tablet) [facility] Last Admin: 11/23/20 09:37 Dose: 1 tablet Documented by: Medical Necessity - Tobacco Use Smoking Status: Current every day smoker Tobacco Use: Cigarettes, Cigars Assessment/Plan All Active Problems Substance abuse (Acute) Alcohol withdrawal (Acute) Cellulitis of left leg without foot (Acute) Opiate dependence (Acute) Crack cocaine use (Acute) Opiate withdrawal (Acute) Left leg cellulitis (Acute) #1 acute ethanol withdrawal-patient will remain on phenobarbital for now I have decided to decrease the dosage at this time, patient still appears lethargic and sleepy. Ativan as needed #2 acute opiate withdrawal-patient will remain on Subutex #3 left lower leg cellulitis/skin abscess-secondary to MRSA-continue Bactrim #4 chronic alcoholism #5 polysubstance abuse-cocaine, opiates-patient denies injecting opiates-it is documented that he snorts it Inpatient E&M: 30291 Subs Hosp L2
[2020-11-23] MEDS: Phenobarbital 32.4 MG Tablet PO ×3 (14:45→21:57)
[2020-11-23] MEDS: traZODone 100 MG Tablet PO (21:57)
[2020-11-24] MEDS: Buprenorphine HCl 2 MG TAB.SUBL SL ×2 (01:45→13:53)
[2020-11-24] MEDS: Methocarbamol 750 MG Tablet 1500 MG PO ×3 (01:45→17:43)
[2020-11-24 01:56] VITALS: BP 104/65; PULSE 86; RESP 16; TEMP 36.7; O2SAT 100
[2020-11-24] MEDS: Folic Acid 1 MG Tablet PO (08:41)
[2020-11-24] MEDS: Smz/Tmp Ds Tablet 1 TABLET PO ×2 (08:41→17:29)
[2020-11-24] MEDS: Docusate Sodium 100 MG Capsule PO ×2 (08:42→21:48)
[2020-11-24] MEDS: Ondansetron 8 MG Tablet PO (08:49)
[2020-11-24] MEDS: Acetaminophen 500 MG Tablet PO ×3 (08:50→20:08)
[2020-11-24] MEDS: Ibuprofen 600 MG Tablet PO ×2 (08:50→17:33)
[2020-11-24 08:51] VITALS: BP 102/62; PULSE 81; RESP 16; TEMP 36.7; O2SAT 99
[2020-11-24] MEDS: Phenobarbital 32.4 MG Tablet PO ×3 (10:27→21:48)
--- NOTE | 2020-11-24 10:51 | PCM.PROGNOTE ---
Patient Problems: Active and Suspected Problems Substance abuse (Acute) Alcohol withdrawal (Acute) Cellulitis of left leg without foot (Acute) Opiate dependence (Acute) Crack cocaine use (Acute) Opiate withdrawal (Acute) Left leg cellulitis (Acute) Subjective: Patient was seen and examined today, he complains of a headache but otherwise has no specific complaints. Patient denies any tremor or nervousness. Objective: General: Alert, Oriented x3, Cooperative, No apparent distress, Well developed HEENT: Atraumatic, PERRLA, EOMI, Normocephalic Oral: Moist Mucosa Neck: Supple, No JVD, No Nuchal Rigidity, Trachea Midline, Thyroid Normal Size and Texture Lungs: Clear to auscultation, Normal air movement, No rhonchi, No wheeze, No rales Cardiovascular: Regular rate, Regular Rhythm, Normal S1, Normal S2, No murmurs, PMI Normal, No rub noted Abdomen: Bowel Sounds Present, Soft, Non Tender, Non-Distended Extremities: No clubbing, No cyanosis, Capillary Refill Less than 3 Seconds, Edema - There is some mild edema and redness distal to the left knee, this area is non tender Skin: - - There is some redness distal to the left knee. Some edema is noted to be present. Overall this area appears to be improved as compared with yesterday-there is some minimal redness persisting but the area is nontender to palpation Musculoskeletal: No Tenderness to Palpation of Joints or Extremities Neurological: Cranial nerves II-XII grossly intact, Neuro grossly intact, Muscle tone normal, Sensory exam intact to light touch and pain Psych/Mental Status: Normal Affect, Appropriate, Alert and oriented to time, place, person, mood and affect - Physical Exam Vitals/I&O's: Vital Signs Temp Pulse Resp BP Pulse Ox 98.1 F 81 16 102/62 99 11/24/20 08:51 11/24/20 08:51 11/24/20 08:51 11/24/20 08:51 11/24/20 08:51 Oxygen Delivery Method Room Air Weight: 63.1 kg Body Mass Index (BMI) 19.3 Intake and Output for Last 24 Hours 11/22/20 11/23/20 11/24/20 23:59 23:59 23:59 Intake Total 3851.00 / 3851.00 1200 / 1440 440 / 440 Balance 3851.00 / 3851.00 1200 / 1440 440 / 440 Microbiology Past 72 Hours 11/21/20 19:52 Blood Culture (Wb) - Anticubital Right Blood Culture - Preliminary No growth in 48 hours. 11/21/20 21:10 Fluid - Synovial (joint) Gram Stain - Final 11/21/20 21:10 Fluid - Synovial (joint) Body Fluid Culture - Final Meth. resistant Staph. aureus Laboratory Results 11/21/20 19:00: Hepatitis A IgM Ab Negative, Hepatitis A Ab Total Negative, Hep Bs Antigen Negative, Hep B Core Total Ab Negative, Hep B Core IgM Ab Negative, Hepatitis C Ab Confirm <0.1, Hep C Confirm Com 1 Comment Current Medications Acetaminophen (Acetaminophen 500 Mg Tablet) 500 mg PO Q4H PRN PRN PRN Reason: Temp > 100.4 F, pain 1-06/08 Last Admin: 11/24/20 08:50 Dose: 500 mg Documented by: Aspirin (Aspirin 325 Mg Tablet) 650 mg PO X1 ONE Stop: 11/24/20 10:46 Buprenorphine HCl (Buprenorphine Hcl 2 Mg Tab.Subl) 2 mg SL Q12H [facility]; Taper Stop: 11/25/20 01:29 Last Admin: 11/24/20 01:45 Dose: 2 mg Documented by: Clonidine (Clonidine Hcl 0.1 Mg Tablet) 0.1 mg PO Q8H PRN PRN PRN Reason: RESTLESSNESS Last Admin: 11/22/20 15:05 Dose: 0.1 mg Documented by: Docusate Sodium (Docusate Sodium 100 Mg Capsule) 100 mg PO BID [facility] Last Admin: 11/24/20 08:42 Dose: 100 mg Documented by: Folic Acid (Folic Acid 1 Mg Tablet) 1 mg PO DAILY@0800 [facility] Last Admin: 11/24/20 08:41 Dose: 1 mg Documented by: Sodium Chloride () 250 mls @ 15 mls/hr IV .[id number] PRN PRN Reason: Saline Flush Sodium Chloride () 250 mls @ 15 mls/hr IV .[id number] PRN PRN Reason: Additional IVPB Infusion Ibuprofen (Ibuprofen 600 Mg Tablet) 600 mg PO Q8H PRN PRN PRN Reason: PAIN Last Admin: 11/24/20 08:50 Dose: 600 mg Documented by: Methocarbamol (Methocarbamol 750 Mg Tablet) 1,500 mg PO Q6H PRN PRN PRN Reason: MUSCLE SPASM Last Admin: 11/24/20 01:45 Dose: 1,500 mg Documented by: Nicotine (Nicotine 21 Mg Patch) 21 mg TD DAILY [facility] Last Admin: 11/24/20 08:42 Dose: 21 mg Documented by: Ondansetron HCl (Ondansetron 8 Mg Tablet) 8 mg PO Q8H PRN PRN PRN Reason: NAUSEA Last Admin: 11/24/20 08:49 Dose: 8 mg Documented by: Phenobarbital (Phenobarbital 32.4 Mg Tablet) 32.4 mg PO 4X/DAY [facility] Last Admin: 11/24/20 10:27 Dose: 32.4 mg Documented by: Sodium Chloride (0.9% Saline Lock 10 Ml Syringe) 10 - 40 ml IV UD PRN PRN Reason: SALINE FLUSH Thiamine HCl (Thiamine Hydrochloride 100 Mg Tablet) 100 mg PO DAILYCM [facility] Last Admin: 11/23/20 09:36 Dose: 100 mg Documented by: Trazodone HCl (Trazodone 100 Mg Tablet) 100 mg PO QHS PRN PRN PRN Reason: INSOMNIA Last Admin: 11/23/20 21:57 Dose: 100 mg Documented by: Trimethoprim/Sulfamethoxazole (Smz/Tmp Ds Tablet) 1 tablet PO BIDCM [facility] Last Admin: 11/24/20 08:41 Dose: 1 tablet Documented by: Medical Necessity - Tobacco Use Smoking Status: Current every day smoker Tobacco Use: Cigarettes, Cigars Assessment/Plan All Active Problems Substance abuse (Acute) Alcohol withdrawal (Acute) Cellulitis of left leg without foot (Acute) Opiate dependence (Acute) Crack cocaine use (Acute) Opiate withdrawal (Acute) Left leg cellulitis (Acute) #1 acute ethanol withdrawal-patient is currently on programmed phenobarbital. #2 acute opiate withdrawal-patient will remain on Subutex #3 left lower leg cellulitis/skin abscess-secondary to MRSA-continue Bactrim #4 chronic alcoholism #5 polysubstance abuse-cocaine, opiates-patient denies injecting opiates-it is documented that he snorts it Inpatient E&M: 45478 Subs Hosp L2
[2020-11-24] MEDS: Aspirin 325 MG Tablet 650 MG PO (11:25)
[2020-11-24 14:00] VITALS: BP 102/60; PULSE 85; RESP 16; TEMP 35.9; O2SAT 100
[2020-11-24 20:00] VITALS: BP 98/59; PULSE 90; RESP 16; TEMP 36.8; O2SAT 99
[2020-11-24 21:30] VITALS: BP 98/61; PULSE 83; RESP 17; TEMP 36.8; O2SAT 98
[2020-11-24] MEDS: traZODone 100 MG Tablet PO (21:48)
[2020-11-25 03:30] VITALS: BP 97/60; PULSE 75; RESP 14; TEMP 36.7; O2SAT 99
[2020-11-25] MEDS: Ibuprofen 600 MG Tablet PO (03:37)
[2020-11-25 03:45] VITALS: BP 97/60; PULSE 75; RESP 14; TEMP 36.7; O2SAT 99
[2020-11-25] MEDS: Acetaminophen 500 MG Tablet PO (05:50)
[2020-11-25] MEDS: Phenobarbital 32.4 MG Tablet PO (05:50)
[2020-11-25 07:27] VITALS: O2SAT 99
[2020-11-25] MEDS: Thiamine Hydrochloride 100 MG Tablet PO (07:35)
[2020-11-25] MEDS: Smz/Tmp Ds Tablet 1 TABLET PO (07:35)
[2020-11-25] MEDS: Folic Acid 1 MG Tablet PO (07:36)
--- NOTE | 2020-11-25 08:30 | DCINST_ITS ---
- Discharge Diagnoses Current Active Problems: Current Active and Chronic Problems Substance abuse (Acute) Alcohol withdrawal (Acute) Cellulitis of left leg without foot (Acute) Opiate dependence (Acute) Crack cocaine use (Acute) Opiate withdrawal (Acute) Tobacco use (Chronic) Left leg cellulitis (Acute) You will use the following diet at home:: No restrictions Allergies/Adverse Reactions: Allergies shellfish derived Allergy (Verified 11/21/20 17:48) Anaphylaxis Medications to take at Discharge Multivitamin 1 each PO DAILY #1 tablet 11/25/20 Smz/Tmp Ds [Bactrim Ds] 1 tablet PO BIDCM #7 tablet 11/25/20 The following prescriptions were given: Smz/Tmp Ds [Bactrim Ds] 1 tablet PO BIDCM #7 tablet Transmission Status: Pending to [facility] Multivitamin 1 each PO DAILY #1 tablet Primary Care Physician: Care Physician,No Primary [Primary Care Provider] - Test Results: Test results from this visit will be discussed in further detail at your follow- up appointment, if applicable.
--- NOTE | 2020-11-25 08:32 | PCM.DC.SUM ---
Discharge Date and Diagnosis - Problem List Patient Problems: Active and Suspected Problems Substance abuse (Acute) Alcohol withdrawal (Acute) Cellulitis of left leg without foot (Acute) Opiate dependence (Acute) Crack cocaine use (Acute) Opiate withdrawal (Acute) Left leg cellulitis (Acute) Date of Admission: 11/21/20 Date of Discharge: 11/25/20 - Primary Discharge Diagnosis Acute Problems: Active Problems Substance abuse (Acute) Alcohol withdrawal (Acute) Cellulitis of left leg without foot (Acute) Opiate dependence (Acute) Crack cocaine use (Acute) Opiate withdrawal (Acute) Left leg cellulitis (Acute) - Secondary Discharge Diagnosis Chronic Problems: Chronic Problems Tobacco use (Chronic) Hospital Course and Treatment Imaging Results: Clinical Impression(s) from Imaging Studies Tibia/Fibula X-Ray 11/21/20 20:05 IMPRESSION: Sclerotic expansile lesion in the mid to distal fibula is indeterminate. Recommend MRI tib-fib with and without contrast for further evaluation. Electronically Signed: Sammy Danielle MD at 20:54 EDT Tel , Service support , [facility] [place] Operations: None Procedures: None Summary of Care Provided: The patient is a 39 year old M presents seeking treatment for drug and alcohol withdrawal. He was put on a buprenorphine taper as well as scheduled phenobarbital. She patient did well from a withdrawal standpoint during his hospitalization. Patient also did have infected patellar septic bursitis. Patient had aspirated in the emergency room and culture came back positive for MRSA. Patient was seen by infectious disease who recommended trimethoprim/sulfamethoxazole for 5 to 7 days. Patient's knee is essentially back to normal according to the patient. Patient was seen by addiction medicine and patient will follow up with a program named [facility] for further intensive outpatient counseling upon discharge. Patient is here with his who is also going through withdrawal program and she will be discharged today as well. [] Patient Problems: Active and Suspected Problems Substance abuse (Acute) Alcohol withdrawal (Acute) Cellulitis of left leg without foot (Acute) Opiate dependence (Acute) Crack cocaine use (Acute) Opiate withdrawal (Acute) Left leg cellulitis (Acute) - Physical Exam Vitals/I&O's: Vital Signs Temp Pulse Resp BP Pulse Ox 36.7 C 75 14 97/60 99 11/25/20 03:45 11/25/20 03:45 11/25/20 03:45 11/25/20 03:45 11/25/20 07:27 Oxygen Delivery Method Room Air Weight: 63.1 kg Body Mass Index (BMI) 19.3 Intake and Output for Last 24 Hours 11/23/20 11/24/20 11/25/20 23:59 23:59 23:59 Intake Total 1200 / 1440 1000 / 1000 100 / 100 Balance 1200 / 1440 1000 / 1000 100 / 100 General: Alert, No apparent distress HEENT: Atraumatic, Normocephalic Extremities: - - No effusion of the knees. [place] bilaterally. No evidence of any cellulitis on his lower extremities Microbiology Past 72 Hours 11/21/20 19:52 Blood Culture (Wb) - Anticubital Right Blood Culture - Preliminary No growth in 48 hours. 11/21/20 21:10 Fluid - Synovial (joint) Gram Stain - Final 11/21/20 21:10 Fluid - Synovial (joint) Body Fluid Culture - Final Meth. resistant Staph. aureus Current Medications Acetaminophen (Acetaminophen 500 Mg Tablet) 500 mg PO Q4H PRN PRN PRN Reason: Temp > 100.4 F, pain 1-06/08 Last Admin: 11/25/20 05:50 Dose: 500 mg Documented by: Clonidine (Clonidine Hcl 0.1 Mg Tablet) 0.1 mg PO Q8H PRN PRN PRN Reason: RESTLESSNESS Last Admin: 11/22/20 15:05 Dose: 0.1 mg Documented by: Docusate Sodium (Docusate Sodium 100 Mg Capsule) 100 mg PO BID [facility] Last Admin: 11/24/20 21:48 Dose: 100 mg Documented by: Folic Acid (Folic Acid 1 Mg Tablet) 1 mg PO DAILY@0800 [facility] Last Admin: 11/25/20 07:36 Dose: 1 mg Documented by: Sodium Chloride () 250 mls @ 15 mls/hr IV .[id number] PRN PRN Reason: Saline Flush Sodium Chloride () 250 mls @ 15 mls/hr IV .[id number] PRN PRN Reason: Additional IVPB Infusion Ibuprofen (Ibuprofen 600 Mg Tablet) 600 mg PO Q8H PRN PRN PRN Reason: PAIN Last Admin: 11/25/20 03:37 Dose: 600 mg Documented by: Methocarbamol (Methocarbamol 750 Mg Tablet) 1,500 mg PO Q6H PRN PRN PRN Reason: MUSCLE SPASM Last Admin: 11/24/20 17:43 Dose: 1,500 mg Documented by: Nicotine (Nicotine 21 Mg Patch) 21 mg TD DAILY [facility] Last Admin: 11/24/20 08:42 Dose: 21 mg Documented by: Ondansetron HCl (Ondansetron 8 Mg Tablet) 8 mg PO Q8H PRN PRN PRN Reason: NAUSEA Last Admin: 11/24/20 08:49 Dose: 8 mg Documented by: Phenobarbital (Phenobarbital 32.4 Mg Tablet) 32.4 mg PO TID [facility] Last Admin: 11/25/20 05:50 Dose: 32.4 mg Documented by: Sodium Chloride (0.9% Saline Lock 10 Ml Syringe) 10 - 40 ml IV UD PRN PRN Reason: SALINE FLUSH Thiamine HCl (Thiamine Hydrochloride 100 Mg Tablet) [facility] Last Admin: 11/25/20 07:35 Dose: 100 mg Documented by: Trazodone HCl (Trazodone 100 Mg Tablet) 100 mg PO QHS PRN PRN PRN Reason: INSOMNIA Last Admin: 11/24/20 21:48 Dose: 100 mg Documented by: Trimethoprim/Sulfamethoxazole (Smz/Tmp Ds Tablet) [facility] Last Admin: 11/25/20 07:35 Dose: 1 tablet Documented by: Discharge Diet: No Restrictions Discharge Activity: Return to Normal Activity Home Medications: Medications to take at Discharge Multivitamin 1 each PO DAILY #1 tablet 11/25/20 Smz/Tmp Ds [Bactrim Ds] 1 tablet PO BIDCM #7 tablet 11/25/20 Following Prescriptions Were Given to Patient: Smz/Tmp Ds [Bactrim Ds] 1 tablet PO BIDCM #7 tablet Transmission Status: Pending to [facility] Multivitamin 1 each PO DAILY #1 tablet Primary Care Physician: Care Physician,No Primary [Primary Care Provider] - Disposition: Home Minutes spent on discharge:: 28 Patient Condition:: Good Medical Necessity - Tobacco Use Smoking Status: Current every day smoker Tobacco Use: Cigarettes, Cigars Meaningful Use Info Meaningful Use Diagnoses (Choose all that apply): None applicable Inpatient E&M: [id number] [facility]osp
[2020-11-25 08:36] VITALS: BP 102/60; PULSE 76; RESP 16; TEMP 36.7; O2SAT 99
--- NOTE | 2020-11-25 11:18 | PHA.DC.MR ---
Pharmacy Service has performed discharge medication reconciliation for this patient. The patient's discharge medication list was reviewed for discrepancies and discrepancies were resolved. Home Medications Multivitamin 1 each PO DAILY #1 tablet 11/25/20 Smz/Tmp Ds [Bactrim Ds] 1 tablet PO BIDCM #7 tablet 11/25/20
== END 2020-11-25 10:46 | disposition home or self-care (01) | DRG 897 ==
LOC: ED 20:33 → PCU 21:10
PROVIDERS: Internal Medicine; Admitting Provider Family Medicine; Emergency Provider Emergency Medicine
DX: F10.239 Alcohol dependence with withdrawal, unspecified (principal); L03.116 Cellulitis of left lower limb; L02.416 Cutaneous abscess of left lower limb; M71.162 Other infective bursitis, left knee; A49.02 Methicillin resistant Staphylococcus aureus infection, unspecified site; F11.23 Opioid dependence with withdrawal; F41.9 Anxiety disorder, unspecified; F14.10 Cocaine abuse, uncomplicated; G25.81 Restless legs syndrome; F17.210 Nicotine dependence, cigarettes, uncomplicated; E16.2 Hypoglycemia, unspecified; Y90.1 Blood alcohol level of 20-39 mg/100 ml; D64.9 Anemia, unspecified; E87.6 Hypokalemia; K08.89 Other specified disorders of teeth and supporting structures
CPT/HCPCS: 73590; 80053; 80307; 82077; 83605; 83735; 84100; 85025; 86703; 86704; 86705; 86706; 86708; 86709; 86803; 87040; 87070; 87075; 87077; 87186; 87205; 87340; 87640; 99285; J7040; J7120; A4216; J0295; J2405

== ENCOUNTER 2021-01-04 15:36 | Inpatient (IN) | payer MEDICAID, SELFPAY ==
[2021-01-04 15:39] VITALS: BP 120/68; PULSE 85; RESP 15; TEMP 36.2; O2SAT 99; BMI 20.3
--- NOTE | 2021-01-04 15:56 | EKG12_ITS ---
Test Reason : Blood Pressure : / mmHG Vent. Rate : 091 BPM Atrial Rate : 091 BPM P-R Int : 170 ms QRS Dur : 090 ms QT Int : 360 ms P-R-T Axes : 076 193 069 degrees QTc Int : 442 ms Normal sinus rhythm Right superior axis deviation Abnormal ECG Confirmed by GUSTAVO ECHEVARRIA, KAILASH ([id number]), editorial director ELLY JOLLY ([id number]) on 01/06/2021 1:09:52 PM Referred By: NARENDRA Confirmed By:KAILASH CHEN MD
--- NOTE | 2021-01-04 15:58 | EDS_ITS ---
HPI History of Present Illness Chief Complaint: Substance Abuse Narrative Narrative: 40-year-old male presenting for detox from alcohol, heroin, Xanax. Patient states he last used yesterday at about 2 PM. Patient has symptoms of chicken skin, yawning, shaking. Patient states that he normally does as much Xanax he can get his hands on. He does heroin daily. He smokes this. Patient states that he also drinks 12-18 beers a day. Patient denies nausea or vomiting. Patient denies chest pain or abdominal pain. Patient states he last detox about a month ago. Patient states that the dope man came by offering him free drugs. [facility] Medical History (Updated 01/04/21 @ 15:49 by Santa Nath) Alcohol abuse Substance abuse Home Medications NK 01/04/21 [History Last Taken Unknown] Allergy/AdvReac Type Severity Reaction Status Date / Time shellfish derived Allergy Anaphylaxis Verified 01/04/21 15:37 Social History Smoking Status: Current every day smoker ROS ROS ED Constitutional Constitutional ED: Reports sweats and other Details: Admits to feeling shaky. ; Denies chills or fever(s) Eyes Eyes: Denies blurry vision or change in vision ENT ENT ED: Denies ear pain, rhinorrhea or sore throat Cardiovascular Cardiovascular: Denies chest pain, palpitations or racing heartbeat Respiratory/Chest Respiratory/Chest: Denies cough, dyspnea or sputum Gastrointestinal Gastrointestinal: Denies abdominal pain, constipation, diarrhea or vomiting Genitourinary Genitourinary ED: Denies dysuria, hematuria or urinary frequency Musculoskeletal Musculoskeletal: Denies arthralgias, myalgias or neck pain Integumentary Denies abscess, Abrasions or rash Neurologic Neurologic: Denies headache(s), paresthesias or weakness Psychiatric Psychiatric: Denies anxiety, depression, suicidal ideation or suicidal thoughts Endocrine Endocrinology: Denies polydipsia or polyuria EXAM Physical Exam Const Vital Signs: 01/04/21 15:39 01/04/21 17:06 Temperature 97.1 F L 98.4 F Temperature Source Temporal Temporal Pulse Rate 85 88 Respiratory Rate 15 20 H Blood Pressure 120/68 111/72 Blood Pressure Mean 85 85 Pulse Ox 99 98 Oxygen Delivery Method Room Air Room Air General Appearance ED: Negative for pallor HEENT Reports normocephalic, head/scalp atraumatic and moist mucous membranes Eyes PERRL and EOMs intact bilaterally Neck no lymphadenopathy and supple Chest Wall inspection of chest normal and palpation of chest normal Resp normal respiratory effort and clear to auscultation bilaterally Auscultation: Negative for rales, rhonchi or wheezes Cardio regular rate and regular rhythm GI normal to inspection, nondistended, normoactive bowel sounds and non-distended Auscultation: normoactive bowel sounds Palpation: soft Narrative: Deferred Back/Spine no CVA tenderness General Back: Negative for CVA tenderness Cervical Spine: Negative for cervical spine tenderness Extremity normal to inspection General Extremety ED: Yes edema and tenderness General Extremity: edema Neuro oriented x3 and CN's II-XII intact bilaterally Sensorium / Orientation: alert Motor Exam: strength 5/5 throughout Psych mental status grossly normal Attitude: No agitated Skin no rashes or lesions noted and no wounds General Skin Exam: Negative for jaundice or pallor Lesions: no lesions Rashes: no rashes MDM MDM MDM Narrative Medical decision making narrative: Patient presenting for alcohol detox, heroin detox, admits to Xanax use as well. Patient's vital signs are stable and he is afebrile. He states that he feels anxious and jittery. Last use of alcohol and drugs were yesterday. Patient given 1 dose of Ativan IV and feels improved. He had EKG performed which shows a sinus rhythm at [address] elevations or depressions or other signs of ischemic change as interpreted by myself. Blood work is within normal limits. EtOH is negative. Drug screen is pending on admission. Patient was discussed with hospitalist who admit the patient for detox. Impression: 1. EtOH abuse 2. Benzodiazepine abuse 3. Heroin abuse Lab Data Labs: Laboratory Results - last 24 hr 01/04/21 01/04/21 01/04/21 16:05 16:05 16:05 WBC 6.9 RBC 4.97 Hgb 14.9 Hct 44.8 MCV 90.1 MCH 30.0 MCHC 33.3 RDW Std Deviation 42.0 RDW Coeff of [place] 12.8 Plt Count 219 MPV 12.0 Immature Gran % (Auto) 0.300 Neut % (Auto) 64.3 Lymph % (Auto) 25.7 [place] % (Auto) 7.1 Eos % (Auto) 1.7 Baso % (Auto) 0.9 Absolute Neuts (auto) 4.5 Absolute Lymphs (auto) 1.78 Nucleated RBC % 0 Sodium 142 Potassium 3.5 Chloride 105 Carbon Dioxide 32.0 Anion Gap 5 BUN 15 Creatinine 0.83 Estim Creat Clear Calc 112.99 Est GFR (MDRD) Af Amer 133 Est GFR (MDRD) Non-Af 110 BUN/Creatinine Ratio 18.0 Glucose 77 Calcium 8.5 Total Bilirubin 0.30 AST 17 ALT 25 Alkaline Phosphatase 115 Total Protein 6.8 Albumin 3.5 Globulin 3.3 Albumin/Globulin Ratio 1.1 Urine Color Urine Clarity Urine pH Ur Specific [place] Urine Protein Urine Glucose (UA) Urine Ketones Urine Occult Blood Urine Nitrite Urine Bilirubin Urine Urobilinogen Ur Leukocyte Esterase Ur Drug Screen Comment Ethyl Alcohol < 3.0 01/04/21 01/04/21 17:00 17:00 WBC RBC Hgb Hct MCV MCH MCHC RDW Std Deviation RDW Coeff of [place] Plt Count MPV Immature Gran % (Auto) Neut % (Auto) Lymph % (Auto) [place] % (Auto) Eos % (Auto) Baso % (Auto) Absolute Neuts (auto) Absolute Lymphs (auto) Nucleated RBC % Sodium Potassium Chloride Carbon Dioxide Anion Gap BUN Creatinine Estim Creat Clear Calc Est GFR (MDRD) Af Amer Est GFR (MDRD) Non-Af BUN/Creatinine Ratio Glucose Calcium Total Bilirubin AST ALT Alkaline Phosphatase Total Protein Albumin Globulin Albumin/Globulin Ratio Urine Color Yellow Urine Clarity Clear Urine pH 6.0 Ur Specific [place] 1.025 Urine Protein 15 H Urine Glucose (UA) Normal Urine Ketones 5 H Urine Occult Blood Negative Urine Nitrite Negative Urine Bilirubin Negative Urine Urobilinogen Normal Ur Leukocyte Esterase Negative Ur Drug Screen Comment Ethyl Alcohol Discharge Plan Disposition Disposition: Acute Care Hospital [facility] Discharge Date/Time: 01/04/21 17:30
[2021-01-04] MEDS: LORazepam 2 MG/ML Syringe 1 MG IV (16:06)
--- NOTE | 2021-01-04 16:07 | CM.ED ---
Social Work Consult: Substance Abuse Telephone call to [employer], Emily. Emily updated on patient admission to [facility] Leana Balderrama MSW, [facility]
[2021-01-04 16:21] LABS: Absolute Lymphocyte Count 1.78 X10^3/uL (0.83-4.51); Absolute Neutrophil Count 4.5 X10^3/uL (2.0-7.7); Basophil# 0.06 X10^3/uL; Basophil% 0.9 % (0-1); Eosinophil# 0.12 X10^3/uL; Eosinophils% 1.7 % (0-5); Hematocrit 44.8 % (40-54); Hemoglobin 14.9 g/dL (13.0-16.5); Lymphocyte # 1.78 X10^3/ul (0.83-4.51); Lymphocyte % 25.7 % (19-41); Mean Corp Hgb Conc 33.3 g/dL (32-36); Mean Corpuscular Volume 90.1 fL (80-94); Monocyte# 0.49 X10^3/uL; Monocyte% 7.1 % (0-10); NRBC Flagged by Analyzer 0 % (0-5); Neutrophil # 4.46 X10^3/uL (2.7-7.7); Neutrophil % 64.3 % (47-70); Platelet Count 219 K/mm3 (150-450); RBC Distribution Width CV 12.8 % (11.6-14.6); Red Blood Count 4.97 M/mm3 (4.6-6.2); White Blood Count 6.9 K/mm3 (4.4-11.0)
[2021-01-04 16:43] LABS: ALB/GLOB Ratio 1.1 RATIO (0.9-2.4); AST(SGOT) 17 U/L (15-37); Alanine Aminotransfer ALT/SGPT 25 U/L (16-61); Albumin, Serum 3.5 g/dL (3.2-5.0); Alcohol, Blood (Medical)-Serum < 3.0 mg/dL; Alkaline Phosphatase 115 U/L (45-117); Anion Gap 5 (5-15); BUN 15 mg/dL (7-18); Calcium,Total 8.5 mg/dL (8.5-10.1); Chloride 105 mmol/L (98-107); Creatinine, Serum 0.83 mg/dL (0.70-1.30); EST Glomerular Filtration Rate 110 mL/min (>60); Est Glom Filt Rate - Afr Amer 133 mL/min (>60); Estimated Creatinine Clearance 112.99 ml/min; Globulin 3.3 g/dL (2.2-4.2); Glucose 77 mg/dL (74-106); Potassium 3.5 mmol/L (3.5-5.1); Protein, Total 6.8 g/dL (6.4-8.2); Sodium Level 142 mmol/L (136-145)
--- NOTE | 2021-01-04 16:55 | HP.PCM.HOS_ITS ---
HPI - General General Date of Admission: 01/04/21 HPI Narrative CASSIDY JONES, is a 40 M with a PMH as outlined who presents for acute alcohol withdrawal. He has a PMH of substance abuse, namely xanax, heroin and alcohol. He feels he has shaking and tremors, feels he has chicken skin/ He says he uses as much xanax as he can get. Serum alcohol screen was negative. He last detoxed about a month ago, and he was doing ok until his drug dealer offered him free drugs. He last used drugs and alcohol yesterday. REview of systems otherwise negative. Urine tox was positive for cocaine and serum alcohol level was less than 3. He has been admitted to be managed for acute opioid and alcoh ol withdrawal. [facility] Medical History (Updated 01/04/21 @ 15:49 by Santa aNth) Alcohol abuse Substance abuse Home Medications NK 01/04/21 [History Last Taken Unknown] Allergy/AdvReac Type Severity Reaction Status Date / Time shellfish derived Allergy Anaphylaxis Verified 01/04/21 15:37 Social History Smoking Status: Current every day smoker ROS Constitutional Constitutional: Denies anorexia, fatigue or fever(s) Eyes Eyes: Denies double vision ENT HEENT: Denies abnormal hearing Cardiovascular Cardiovascular: Denies chest pain, lightheadedness, orthopnea, palpitations or rapid heart rate Respiratory/Chest Respiratory/Chest: Denies cough, dyspnea, shortness of breath at rest or shortness of breath with exertion Gastrointestinal Gastrointestinal: Denies abdominal pain Genitourinary Genitourinary: Denies burning urination or difficulty urinating Musculoskeletal Musculoskeletal: Denies arthralgias or back pain Neurologic Neurologic: Denies abnormal gait or confusion Psychiatric Psychiatric: Denies anxiety or depression Endocrine Endocrinology: Denies change in body appearance Vital Signs Vital Signs Vital Signs: 01/04/21 15:39 Temperature 97.1 F L Temperature Source Temporal Pulse Rate 85 Respiratory Rate 15 Blood Pressure 120/68 Blood Pressure Mean 85 Pulse Ox 99 Oxygen Delivery Method Room Air Physical Exam Const alert, oriented x3 and no apparent distress General Appearance: cooperative HEENT normocephalic Eyes PERRL, EOMs intact bilaterally and conjunctivae normal Resp normal respiratory effort, no retractions and no use of accessory muscles Cardio regular rate, regular rhythm, S1 normal heart sound, S2 normal heart sound and no murmurs GI normal to inspection, nondistended, normoactive bowel sounds, soft to palpation, non-tender and non-distended Extremity normal to inspection Skin no rashes or lesions noted and no wounds Neuro oriented x3 Sensorium / Orientation: awake and alert Psych affect normal Lab / Micro Data Result Diagrams: 01/04/21 16:05 01/04/21 16:05 Labs: Laboratory Results - last 24 hr 01/04/21 01/04/21 01/04/21 16:05 16:05 16:05 WBC 6.9 RBC 4.97 Hgb 14.9 Hct 44.8 MCV 90.1 MCH 30.0 MCHC 33.3 RDW Std Deviation 42.0 RDW Coeff of Thalia 12.8 Plt Count 219 MPV 12.0 Immature Gran % (Auto) 0.300 Neut % (Auto) 64.3 Lymph % (Auto) 25.7 [place] % (Auto) 7.1 Eos % (Auto) 1.7 Baso % (Auto) 0.9 Absolute Neuts (auto) 4.5 Absolute Lymphs (auto) 1.78 Nucleated RBC % 0 Sodium 142 Potassium 3.5 Chloride 105 Carbon Dioxide 32.0 Anion Gap 5 BUN 15 Creatinine 0.83 Estim Creat Clear Calc 112.99 Est GFR (MDRD) Af Amer 133 Est GFR (MDRD) Non-Af 110 BUN/Creatinine Ratio 18.0 Glucose 77 Calcium 8.5 Total Bilirubin 0.30 AST 17 ALT 25 Alkaline Phosphatase 115 Total Protein 6.8 Albumin 3.5 Globulin 3.3 Albumin/Globulin Ratio 1.1 Ethyl Alcohol < 3.0 Assessment & Plan Assessment/Plan (1) Substance abuse: (2) Alcohol withdrawal: QUALIFIERS: Complication of substance-induced condition: with unspecified complication Qualified Code(s): F10.239 - Alcohol dependence with withdrawal, unspecified (3) Opiate dependence: (4) Opiate withdrawal: PLAN: #Acute opioid and alcohol withdrawal * admit to med surg * start on alcohol withdrawal protocol with phenobarbital; add on opioid withdrawal protocol with buprenorphine * monitor CIWA and CINA scores * PO multivites, folic acid and thiamine * * #Nicotine dependence * counseled to quit. * nicotine patch 21mg daily * DVT prophylaxis: low risk, encourage to ambulate Visit Charges Inpatient E&M: 51976 Init Hosp L3
[2021-01-04 17:06] VITALS: BP 111/72; PULSE 88; RESP 20; TEMP 36.9; O2SAT 98
[2021-01-04 17:11] LABS: Squamous Epithelial Cells - UA 0 SEEN /hpf (0-5); White Blood Cells 0 SEEN /hpf (0-5)
[2021-01-04 17:25] LABS: Color, Urine Yellow (Yellow); Glucose, Dipstick Normal (Normal); Ketone-Dipstick 5 mg/dl (Negative); Leukocyte Esterase-Dipstick Negative /ul (Negative); Nitrite-Dipstick Negative (Negative); Occult Blood-Urine Negative /ul (Negative); Protein-Dipstick 15 mg/dl (Negative); Specific Gravity, Urine 1.025 (1.002-1.030); Urine Bilirubin Dipstick Negative (Negative); Urine Clarity Clear (Clear); Urine Urobilinogen Normal (Normal)
[2021-01-04 17:33] LABS: Mucous, Urine 2+ /hpf (<or=2+); Red Blood Cells-Urine 0-5 SEEN /hpf (0-5)
[2021-01-04 17:43] VITALS: BMI 20.3
[2021-01-04 17:45] LABS: Amphetamine Urine VISTA NEGATIVE (<1000 ng/mL); Barbiturate Urine VISTA NEGATIVE (< 200 ng/mL); Benzodiazepine Urine VISTA NEGATIVE (< 200 ng/mL); Cocaine Urine VISTA POSITIVE (< 300 ng/mL); Ecstacy Urine VISTA NEGATIVE (< 500 ng/mL); Methadone Urine VISTA NEGATIVE (< 300 ng/mL); PCP Urine VISTA NEGATIVE (< 25 ng/mL); THC Urine VISTA NEGATIVE (< 50 ng/mL); Vista UDS pH Range 5
[2021-01-04 18:00] VITALS: PULSE 90; RESP 16; TEMP 36.7; O2SAT 100
[2021-01-04] MEDS: LORazepam 1 MG Tablet 2 MG PO ×2 (18:18→21:28)
[2021-01-04] MEDS: Buprenorphine HCl 2 MG TAB.SUBL SL (18:18)
[2021-01-04] MEDS: Phenobarbital 32.4 MG Tablet 64.8 MG PO ×2 (18:18→21:28)
[2021-01-04] MEDS: Multivitamins,Ther W-Minerals Tablet 1 TABLET PO (18:18)
[2021-01-04] MEDS: Thiamine Hydrochloride 100 MG Tablet PO (18:19)
[2021-01-04] MEDS: Folic Acid 1 MG Tablet PO (18:19)
[2021-01-04 21:19] VITALS: BP 102/63; PULSE 84; RESP 18; TEMP 36.9; O2SAT 100
[2021-01-04] MEDS: Dicyclomine 10 MG Capsule 20 MG PO (21:28)
[2021-01-05] VITALS (7 sets, daily range): BP systolic 93–113; BP diastolic 60–90; PULSE 63–84; RESP 14–18; TEMP 36.6–37.1; O2SAT 98–100
[2021-01-05] MEDS: Phenobarbital 32.4 MG Tablet 64.8 MG PO ×5 (02:36→21:07)
[2021-01-05] MEDS: Methocarbamol 750 MG Tablet 1500 MG PO ×2 (02:36→14:54)
[2021-01-05] MEDS: Buprenorphine HCl 2 MG TAB.SUBL SL ×2 (02:36→17:33)
[2021-01-05] MEDS: hydrOXYzine PAM 25 MG Capsule 50 MG PO (05:56)
[2021-01-05 07:00] LABS: Absolute Lymphocyte Count 1.69 X10^3/uL (0.83-4.51); Absolute Neutrophil Count 2.7 X10^3/uL (2.0-7.7); Basophil# 0.04 X10^3/uL; Basophil% 0.8 % (0-1); Eosinophil# 0.19 X10^3/uL; Eosinophils% 3.8 % (0-5); Hematocrit 45.9 % (40-54); Hemoglobin 14.7 g/dL (13.0-16.5); Lymphocyte # 1.69 X10^3/ul (0.83-4.51); Lymphocyte % 33.9 % (19-41); Mean Corpuscular Volume 90.5 fL (80-94); Mean Platelet Vol. 12.2 fl (6.2-12.0); Monocyte# 0.38 X10^3/uL; Monocyte% 7.6 % (0-10); NRBC Flagged by Analyzer 0 % (0-5); Neutrophil # 2.66 X10^3/uL (2.7-7.7); Neutrophil % 53.5 % (47-70); Platelet Count 194 K/mm3 (150-450); RBC Distribution Width CV 12.9 % (11.6-14.6); RBC Distribution Width SD 43.1 fl (35.1-43.9); Red Blood Count 5.07 M/mm3 (4.6-6.2)
[2021-01-05 07:42] LABS: AST(SGOT) 12 U/L (15-37); Alanine Aminotransfer ALT/SGPT 20 U/L (16-61); Albumin, Serum 3.1 g/dL (3.2-5.0); Alkaline Phosphatase 84 U/L (45-117); Anion Gap 0 (5-15); BUN 13 mg/dL (7-18); BUN/Creat Ratio 17.1 RATIO (10-20); Calcium,Total 8.6 mg/dL (8.5-10.1); Chloride 105 mmol/L (98-107); Creatinine, Serum 0.76 mg/dL (0.70-1.30); EST Glomerular Filtration Rate 122 mL/min (>60); Est Glom Filt Rate - Afr Amer 148 mL/min (>60); Globulin 3.2 g/dL (2.2-4.2); Glucose 91 mg/dL (74-106); Potassium 4.3 mmol/L (3.5-5.1); Protein, Total 6.3 g/dL (6.4-8.2); Sodium Level 138 mmol/L (136-145)
--- NOTE | 2021-01-05 14:45 | PN.HOSP_ITS ---
Subjective Subjective: Patient seen and examined. He still complains of feeling horrible, and complains of abdominal cramps, and chills and generally feeling horrible. Review of systems is otherwise negative. He has remained hemodynamically stable. Objective Data Objective Data Vital Signs: Vital Signs Temp Pulse Resp BP Pulse Ox 98.0 F 84 14 102/60 99 01/05/21 10:00 01/05/21 10:00 01/05/21 10:00 01/05/21 10:00 01/05/21 10:00 Oxygen Delivery Method Room Air Weight: 145 lb 15.136 oz Body Mass Index (BMI) 20.3 Intake & Output: Intake and Output for Last 24 Hours 01/03/21 01/04/21 01/05/21 23:59 23:59 23:59 Intake Total 250 / 250 300 / 300 Balance 250 / 250 300 / 300 Lab / Micro Data Result Diagrams: 01/05/21 06:30 01/05/21 06:30 Labs: Laboratory Results - last 24 hr 01/04/21 01/04/21 01/04/21 16:05 16:05 16:05 WBC 6.9 RBC 4.97 Hgb 14.9 Hct 44.8 MCV 90.1 MCH 30.0 MCHC 33.3 RDW Std Deviation 42.0 RDW Coeff of Thalia 12.8 Plt Count 219 MPV 12.0 Immature Gran % (Auto) 0.300 Neut % (Auto) 64.3 Lymph % (Auto) 25.7 [place] % (Auto) 7.1 Eos % (Auto) 1.7 Baso % (Auto) 0.9 Absolute Neuts (auto) 4.5 Absolute Lymphs (auto) 1.78 Nucleated RBC % 0 Sodium 142 Potassium 3.5 Chloride 105 Carbon Dioxide 32.0 Anion Gap 5 BUN 15 Creatinine 0.83 Estim Creat Clear Calc 112.99 Est GFR (MDRD) Af Amer 133 Est GFR (MDRD) Non-Af 110 BUN/Creatinine Ratio 18.0 Glucose 77 Calcium 8.5 Total Bilirubin 0.30 AST 17 ALT 25 Alkaline Phosphatase 115 Total Protein 6.8 Albumin 3.5 Globulin 3.3 Albumin/Globulin Ratio 1.1 Urine Color Urine Clarity Urine pH Ur Specific [place] Urine Protein Urine Glucose (UA) Urine Ketones Urine Occult Blood Urine Nitrite Urine Bilirubin Urine Urobilinogen Ur Leukocyte Esterase Urine RBC Urine WBC Ur Squamous Epith Cells Urine Bacteria Urine Mucus Urine Opiates Screen Urine Methadone Screen Ur Barbiturates Screen Ur Phencyclidine Scrn Ur Amphetamines Screen U Methamphetamin-MDMA U Benzodiazepines Scrn Urine Cocaine Screen U Cannabinoids Screen Ur Drug Screen Comment Ethyl Alcohol < 3.0 01/04/21 01/04/21 01/05/21 17:00 17:00 06:30 WBC 5.0 RBC 5.07 Hgb 14.7 Hct 45.9 MCV 90.5 MCH 29.0 MCHC 32.0 RDW Std Deviation 43.1 RDW Coeff of Thalia 12.9 Plt Count 194 MPV 12.2 H Immature Gran % (Auto) 0.400 Neut % (Auto) 53.5 Lymph % (Auto) 33.9 [place] % (Auto) 7.6 Eos % (Auto) 3.8 Baso % (Auto) 0.8 Absolute Neuts (auto) 2.7 Absolute Lymphs (auto) 1.69 Nucleated RBC % 0 Sodium Potassium Chloride Carbon Dioxide Anion Gap BUN Creatinine Estim Creat Clear Calc Est GFR (MDRD) Af Amer Est GFR (MDRD) Non-Af BUN/Creatinine Ratio Glucose Calcium Total Bilirubin AST ALT Alkaline Phosphatase Total Protein Albumin Globulin Albumin/Globulin Ratio Urine Color Yellow Urine Clarity Clear Urine pH 6.0 Ur Specific [place] 1.025 Urine Protein 15 H Urine Glucose (UA) Normal Urine Ketones 5 H Urine Occult Blood Negative Urine Nitrite Negative Urine Bilirubin Negative Urine Urobilinogen Normal Ur Leukocyte Esterase Negative Urine RBC 0-5 SEEN Urine WBC 0 SEEN Ur Squamous Epith Cells 0 SEEN Urine Bacteria Not Reportable Urine Mucus 2+ Urine Opiates Screen NEGATIVE Urine Methadone Screen NEGATIVE Ur Barbiturates Screen NEGATIVE Ur Phencyclidine Scrn NEGATIVE Ur Amphetamines Screen NEGATIVE U Methamphetamin-MDMA NEGATIVE U Benzodiazepines Scrn NEGATIVE Urine Cocaine Screen POSITIVE H U Cannabinoids Screen NEGATIVE Ur Drug Screen Comment Ethyl Alcohol 01/05/21 06:30 WBC RBC Hgb Hct MCV MCH MCHC RDW Std Deviation RDW Coeff of Thalia Plt Count MPV Immature Gran % (Auto) Neut % (Auto) Lymph % (Auto) [place] % (Auto) Eos % (Auto) Baso % (Auto) Absolute Neuts (auto) Absolute Lymphs (auto) Nucleated RBC % Sodium 138 Potassium 4.3 Chloride 105 Carbon Dioxide 33.0 H Anion Gap 0 L BUN 13 Creatinine 0.76 Estim Creat Clear Calc 123.40 Est GFR (MDRD) Af Amer 148 Est GFR (MDRD) Non-Af 122 BUN/Creatinine Ratio 17.1 Glucose 91 Calcium 8.6 Total Bilirubin 0.40 AST 12 L ALT 20 Alkaline Phosphatase 84 Total Protein 6.3 L Albumin 3.1 L Globulin 3.2 Albumin/Globulin Ratio 1.0 Urine Color Urine Clarity Urine pH Ur Specific [place] Urine Protein Urine Glucose (UA) Urine Ketones Urine Occult Blood Urine Nitrite Urine Bilirubin Urine Urobilinogen Ur Leukocyte Esterase Urine RBC Urine WBC Ur Squamous Epith Cells Urine Bacteria Urine Mucus Urine Opiates Screen Urine Methadone Screen Ur Barbiturates Screen Ur Phencyclidine Scrn Ur Amphetamines Screen U Methamphetamin-MDMA U Benzodiazepines Scrn Urine Cocaine Screen U Cannabinoids Screen Ur Drug Screen Comment Ethyl Alcohol Physical Exam Const alert, oriented x3 and no apparent distress General Appearance: cooperative HEENT normocephalic Eyes PERRL, EOMs intact bilaterally and conjunctivae normal Resp normal respiratory effort, no retractions and no use of accessory muscles Cardio regular rate, regular rhythm, S1 normal heart sound, S2 normal heart sound and no murmurs GI normal to inspection, nondistended, normoactive bowel sounds, soft to palpation, non-tender and non-distended Extremity normal to inspection Skin no rashes or lesions noted and no wounds Neuro oriented x3 Sensorium / Orientation: awake and alert Psych affect normal Assessment & Plan Assessment/Plan (1) Substance abuse: (2) Alcohol withdrawal: QUALIFIERS: Complication of substance-induced condition: with unspecified complication Qualified Code(s): F10.239 - Alcohol dependence with withdrawal, unspecified (3) Opiate dependence: (4) Opiate withdrawal: PLAN: #Acute opioid and alcohol withdrawal * on alcohol withdrawal protocol with phenobarbital, and also on opioid withdrawal protocol with buprenorphine * monitor CIWA and CINA scores * urine tox was positive for cocaine, and serum alcohol level was <3. * PO multivites, folic acid and thiamine * #Nicotine dependence * counseled to quit. * nicotine patch 21mg daily * DVT prophylaxis: low risk, encourage to ambulate Visit Charges Inpatient E&M: 70057 Subs Hosp L2
[2021-01-05] MEDS: Multivitamins,Ther W-Minerals Tablet 1 TABLET PO (14:53)
[2021-01-05] MEDS: Folic Acid 1 MG Tablet PO (14:53)
[2021-01-05] MEDS: Thiamine Hydrochloride 100 MG Tablet PO (14:53)
[2021-01-05] MEDS: Dicyclomine 10 MG Capsule 20 MG PO (14:53)
[2021-01-05] MEDS: LORazepam 1 MG Tablet 2 MG PO ×2 (14:54→21:07)
[2021-01-06 02:38] VITALS: BP 83/67; PULSE 83; RESP 18; TEMP 36.6; O2SAT 99
[2021-01-06] MEDS: Methocarbamol 750 MG Tablet 1500 MG PO ×2 (02:44→18:54)
[2021-01-06] MEDS: Buprenorphine HCl 2 MG TAB.SUBL SL (02:44)
[2021-01-06] MEDS: Phenobarbital 32.4 MG Tablet 64.8 MG PO ×2 (02:44→05:28)
[2021-01-06 04:02] VITALS: BP 101/70; PULSE 88; RESP 18; TEMP 36.8; O2SAT 98
--- NOTE | 2021-01-06 09:40 | ADDICTION ---
This show card writer attempted to meet with PT. PT refused to meet with this show card writer but agreed to meet on 01/07/21.
[2021-01-06 10:10] VITALS: BP 98/70; PULSE 101; RESP 16; TEMP 36.6; O2SAT 99
--- NOTE | 2021-01-06 10:18 | NURSING ---
while obtaining vital signs- noticed small white round pill laying beside pt on green lift pad. nurse placed into medicine cup to view and remove out of pt room. pill is white- with lettering [id number] on one side and not able to see if any inscription on the other side. will notify md and charge nurse.
--- NOTE | 2021-01-06 10:24 | NURSING ---
reverified inscription on white round pill found in pt linens- verified wtih Margarita RN [id number] inscription.
[2021-01-06] MEDS: Folic Acid 1 MG Tablet PO (10:39)
[2021-01-06] MEDS: Thiamine Hydrochloride 100 MG Tablet PO (10:39)
[2021-01-06] MEDS: Multivitamins,Ther W-Minerals Tablet 1 TABLET PO (10:39)
--- NOTE | 2021-01-06 10:43 | NURSING ---
to room for linen change. Charge Nurse Margarita with said nurse. informed pt white pill found in bed linen when vitals obtain, so nurse would like to change bed linens. pt agreeable and gets oob to chair. 2 white round pills found on green linen pad (along with some peanuts and food crumbs). pt agrees to have gown change done, during gown change, pt keeps left hand grasped closed, nurse requested whatever was in pt hand- pt drops white paper medication cup into nurses hand- 3 round white pills in cup. pt agrees to replace his socks with hospital slippers. pt brown sweat pants and dark colored socks locked in tote with is other belongings. pt gait is wobbly when standing- said nurse inquired if pt doing anything else while in room, pt states no. 5 white round pills to med room- white round pills x4 with inscription 54/665 on one side- identified via pill finder as subutex white round pill with inscription [id number] with letter similar to V under it identified via pill finder as phenobarbital. will notify
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
[2021-01-06 16:11] VITALS: BP 88/57; PULSE 100; RESP 16; TEMP 36.9; O2SAT 94
[2021-01-06 17:44] VITALS: BP 97/63; PULSE 105; RESP 16; O2SAT 98
[2021-01-06] MEDS: hydrOXYzine PAM 25 MG Capsule 50 MG PO ×2 (18:54→23:44)
[2021-01-06 23:43] VITALS: BP 93/59; PULSE 81; RESP 16; TEMP 36.8; O2SAT 100
[2021-01-06] MEDS: traZODone 100 MG Tablet PO (23:44)
[2021-01-07 04:54] VITALS: BP 89/59; PULSE 86; RESP 16; TEMP 36.4; O2SAT 94
[2021-01-07] MEDS: hydrOXYzine PAM 25 MG Capsule 50 MG PO (04:57)
[2021-01-07] MEDS: Methocarbamol 750 MG Tablet 1500 MG PO (04:57)
[2021-01-07 07:31] VITALS: BP 98/59; PULSE 79; RESP 16; TEMP 36.6; O2SAT 99
[2021-01-07] MEDS: Multivitamins,Ther W-Minerals Tablet 1 TABLET PO (07:35)
[2021-01-07] MEDS: Folic Acid 1 MG Tablet PO (07:36)
[2021-01-07] MEDS: Thiamine Hydrochloride 100 MG Tablet PO (07:36)
--- NOTE | 2021-01-07 09:24 | PCM.DC ---
Discharge Instructions Diet Discharge Diet: No restrictions Follow Up Care Test Results: Test results from this visit will be discussed in further detail at your follow-up appointment, if applicable. Discharge Plan Admission Admit Date/Time: 01/04/21 17:37 Attending Provider: Jeffrey Sorenson Primary Care Provider: Care Physician,No Primary Discharge Orders/Prescriptions Prescriptions: No Action NK RF: 0 Referrals / Follow Up: Care Physician,No Primary [Primary Care Provider] - Disposition Disposition (needs filled in before D/C Order can be placed): Home, self care
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
--- NOTE | 2021-01-07 10:29 | PHA.DC.MR ---
Pharmacy Service has performed discharge medication reconciliation for this patient. The patient's discharge medication list was reviewed for discrepancies and discrepancies were resolved. Home Medications NK 01/04/21
--- NOTE | 2021-01-07 10:53 | ADDICTION ---
This publications writer attempted to meet with PT but PT refused and noted that he's discharging today. Assessments not completed based on PT refusal.
== END 2021-01-07 12:54 | disposition home or self-care (01) | DRG 897 ==
LOC: ED 16:49 → MS3 18:38
PROVIDERS: Admitting Provider Student in an Organized Health Care Education/Training Program; Emergency Provider Student in an Organized Health Care Education/Training Program
DX: F10.239 Alcohol dependence with withdrawal, unspecified (principal); F11.23 Opioid dependence with withdrawal; F17.200 Nicotine dependence, unspecified, uncomplicated; Y90.0 Blood alcohol level of less than 20 mg/100 ml
CPT/HCPCS: 36415; 80053; 80307; 81001; 82077; 85025; 93005; 99283; A4216